=== PATIENT | male | born 1950 | race Caucasian/White ===

== ENCOUNTER 2016-11-10 06:53 | Inpatient (IN) ==
--- NOTE | 2016-11-09 09:46 | Anesthesia Evaluation PreOp ---
Date of Encounter: 11/10/16 Time of Encounter: 07:30 - Past History Planned Operation: CABG Cardiac History: [place], Angina, HTN, Hyperlipidemia, Other (PAD) Pulmonary History: Former smoker (quit December 2015) [employer] History: Denies Any Significant HX Other Medical History: GERD Anesthesia History: No Prior Anesthetic Complications, Past Anesthesia ( Bilateral iliofemoral stents, appendectomy and right TKA) Alcohol Use: occasionally Drug use: none Medications and Allergies Allopurinol [Zyloprim] 300 mg PO DAILY 08/19/15 [History] Lisinopril [Zestril] 40 mg PO DAILY 08/19/15 [History] Metoprolol [Lopressor] 25 mg PO BID 08/19/15 [History] Aspirin [Adult Low Dose Aspirin EC] 81 mg PO DAILY #0 01/17/16 [History] Gabapentin [Neurontin] 800 mg PO TID PRN 01/17/16 [History] Clopidogrel Bisulfate [Plavix] 75 mg PO DAILY #30 tablet 06/23/16 [Rx] Cholecalciferol (D-3) [Vitamin D] 1,000 unit PO DAILY 06/30/16 [History] Atorvastatin Calcium [Lipitor] 10 mg PO DAILY 10/10/16 [History] Isosorbide DInitrate [Isosorbide Dinitrate] 20 mg PO BID #0 10/10/16 [Rx] NIFEdipine [Nifedipine ER] 60 mg PO DAILY 10/10/16 [History] Nitroglycerin 0.4 mg SL Q5-10MIN PRN #30 tab.subl 10/10/16 [Rx] Allergies No Known Allergies Allergy (Verified 08/19/15 06:42) - Meds/Allergy Pre-op Review Medications Reviewed: Yes Allergies Reviewed: Yes Beta Blockers on Current Med List: Yes Anesthesia Results - Labs Laboratory Tests 11/03/16 11/03/16 16:39 16:39 Hgb 13.6 Hct 40.4 Plt Count 207 Sodium 137 Potassium 4.1 BUN 24 Creatinine 1.21 - Imaging EKG: report reviewed Chest x-ray: report reviewed (negative) Additional studies: Cath shows 3 vessel disease with EF 55%. Normal LV contractility, positive stress test for ischemia Anesthesia Exam Selected Entries 11/10/16 07:09 Temperature 97.8 F Pulse Rate 68 Respiratory Rate 18 Blood Pressure 135/81 O2 Sat by Pulse Oximetry 97 Height: 69in Weight: 220lbs NPO (# of Hours): 8 Pain Scale: 0 Pain Scale Used: Numeric (1 - 10) - HEENT Pupil (Motor): EOMI Mallampati: II Teeth: Normal Oral Opening: Greater than 3 - [employer] LOC: Oriented [employer] Motor: Normal RUE, Normal LUE, Normal RLE, Normal LLE, Normal Face [employer] Sensory: Normal: RUE, LUE, RLE, LLE, Face - Cardiac Rhythm: Regular Murmur: None - Pulmonary Breath Sounds: bilateral Clear Respiratory Effort: Symmetrical Anesthesia Assess/Plan ASA Score: 4 Modified [place] Scale for Level of Consciousness: Cooperative, oriented, and tranquil Anesthetic Plan: General Monitoring Plan: Standard Monitors, A-Line, PAC, CIRA Recovery Plan: ICU (Discussed risks of GA, lines, blood products and CIRA. Questions answered. Agrees to proceed.)
[2016-11-10] MEDS ORDERED: *HR* Midazolam HCl 5 MG/5 ML VIAL IVP ONE (06:59)
[2016-11-10] MEDS ORDERED: Tranexamic Acid 1,000 MG/10 ML VIAL ONE ×2 (06:59→09:04)
[2016-11-10] MEDS ORDERED: *HR* Etomidate 20 MG/10 ML AMPUL IVP ONE (06:59)
[2016-11-10] MEDS ORDERED: *HR* Phenylephrine 10 MG/ML VIAL ONE (06:59)
[2016-11-10] MEDS ORDERED: *HR* Norepinephrine 4 MG/4 ML VIAL IVC ONE (06:59)
[2016-11-10] MEDS ORDERED: Famotidine 20 MG/2 ML VIAL ONE (06:59)
[2016-11-10] MEDS ORDERED: Protamine Sulfate 250 MG/25 ML VIAL IVP ONE (06:59)
[2016-11-10] MEDS ORDERED: *HR* Rocuronium Bromide 50 MG/5 ML VIAL ONE (06:59)
[2016-11-10] MEDS ORDERED: *HR* FentaNYL (PF) 1,000 MCG/20 ML VIAL ONE (07:00)
[2016-11-10] MEDS ORDERED: Nitroglycerin 25 MG/250 ML INFUS..BTL IVC ONE (07:02)
[2016-11-10] MEDS ORDERED: NiCARdipine 2.5 MG/10 ML Syringe IVPB ONE (07:03)
[2016-11-10] MEDS ORDERED: ceFAZolin 1,000 MG in D5% in Water (Mini-Bag+) 100 ML IVPB ONE (07:15)
[2016-11-10] MEDS ORDERED: 0.9 % Sodium Chloride 1,000 ML IVC SCH (07:15)
[2016-11-10] MEDS ORDERED: Aspirin 325 MG TABLET PO ONE (07:19)
[2016-11-10] MEDS ORDERED: Vancomycin 1,000 MG in D5% in Water 250 ML IVPB ONE (07:21)
--- NOTE | 2016-11-10 07:25 | History & Physical Report ---
Date of Encounter: 11/10/16 Time of Encounter: 07:23 24 Hour HP Update - Instructions Instructions: If the History and Physical is less than 30 days old and was completed prior to A.M. admission and or procedure and has NOT been updated on calendar day of procedure please complete this update prior to performing procedure. - Update Patient reports changes in Medical Condition: No Changes in assessment/condition: No Changes in Medication: No Preop tests/diagnostics Reviewed: Yes Pre-Op MRSA Screen: Positive, Vancomycin for Prophylaxis Surgery Remains Indicated: Yes Consent for Planned Operative Procedure(s) Verified: Yes - Pre-Operative Checklist Preoperative Checklist Indicated: No Prophylactic Antibiotic Ordered: Yes Home Medications Include Beta Karel: Yes Beta Karel Taken Today (Day of Surgery): Yes Beta Karel Taken Yesterday (Day Prior to Surgery): Yes Is VTE Prophylaxis Indicated?: NO
[2016-11-10] MEDS ORDERED: Aspirin Enteric Coated 325 MG Tablet PO ONE (07:42)
[2016-11-10] MEDS ORDERED: Chlorhexidine Rinse 15 ML MOUTHWASH ONE (07:42)
[2016-11-10] MEDS ORDERED: Chlorhexidine Rinse 15 ML MOUTHWASH MM SCH (09:00)
--- NOTE | 2016-11-10 09:42 | Anesthesia Procedures ---
Date of Encounter: 11/10/16 Time of Encounter: 08:05 Procedures: Anesthesia - Arterial Line Consent obtained: written consent Time out performed: Yes Sedation: Versed (mg): 2 Sedation: Fentanyl (mcg): 100 Supplemental Oxygen via Nasal Cannula (L/min): 2 Size (Gauge): 20 Length (inches): 5 Technique Used: sterile prep, guide wire technique, direct puncture technique Post-Procedure: line taped into place, dry sterile dressing placed Patient tolerated procedure: well, no complications Complications: none Site: Radial L (attempt x 1, easy) - Central Line Placement Right IJ Consent obtained: written consent Time out performed: Yes Patient placed on monitor/pulse ox: Yes prep: mask, gown, gloves Central line prep: Chlorhexidine scrub Ultrasound used for placement: Yes Technique: Seldinger Lumen Inserted: Introducer Post procedure: sutured in place, good blood return, all ports aspirated, flushed, capped, sterile dressing applied Patient tolerated procedure: well, no complications Complications: none (attempt x 1, placed easily, swan wedge approximately 55cm, no arrthymias with placement)
[2016-11-10] MEDS ORDERED: Protamine Sulfate 50 MG/5 ML VIAL IVP ONE (10:56)
[2016-11-10] MEDS ORDERED: Albumin Human 5% 50.0 GM/1,000 ML VIAL ONE (11:06)
[2016-11-10] MEDS ORDERED: *HR* Dextrose 50 % in Water (Syg) 50 ML SYRINGE IVP PRN (11:10)
[2016-11-10] MEDS ORDERED: Acetaminophen 650 MG RECTAL SUPP RC PRN (11:10)
[2016-11-10] MEDS ORDERED: Potassium Chloride 40 MEQ/200 ML BAG IVPB PRN (11:10)
[2016-11-10] MEDS ORDERED: Ondansetron 4 MG/2 ML VIAL IVP PRN (11:10)
[2016-11-10] MEDS ORDERED: Insulin Regular, Human 100 UNIT/ML IV PRN (11:10)
[2016-11-10] MEDS ORDERED: Calcium Chloride 1,000 MG in 0.9 % Sodium Chloride 100 ML IVPB PRN (11:10)
[2016-11-10] MEDS ORDERED: Acetaminophen 325 MG TABLET PO PRN (11:10)
--- NOTE | 2016-11-10 11:10 | Operative Note ---
Date of procedure: 11/10/16 Pre-op diagnosis: CAD Post-op diagnosis: same Procedure: 1. CABG3 (MARINO to LAD, SVG to ramus intermediate branch, SVG to PDA). 2. Endoscopic vein harvesting, greater saphenous vein from right lower extremity area did Implants: None. Complications: None. Anesthesia: RADHIKA Surgeon: Marito Norton Cherry Sorter: [place] Sheets Specimen: None. Condition: stable Disposition: ICU Procedure in Detail: INDICATIONS FOR OPERATION: The patient is a 66-year-old hypertensive man with hypercholesterolemia and known peripheral arterial disease. The patient recently underwent a right SFA stenting procedure followed by a left SFA stenting procedure. During the most recent procedure, the patient complained of GERD which is been present for 2 months. The patient's vascular surgeon, Dr. Gonsalo Clayton, recommended the patient undergo cardiac workup. The patient underwent a nuclear stress test which revealed an LVEF 64% with perfusion defects in the inferior segments. Subsequent cardiac catheterization revealed severe 3 vessel CAD. In particular, the patient had an 80% distal left main lesion, a 40% proximal LAD lesion, a 40% mid LAD lesion, 80% ostial LCx lesion (small vessel) and a completely occluded proximal RCA which fills distally via [id number] collaterals. The patient was recommended for CABG when he was able to advance to limited weightbearing from his right femur fracture. FINDINGS AT OPERATION: The aorta was of normal caliber and without calcification. The coronary arteries measure approximately 1.5-2 mm in diameter had mild distal disease. The greater saphenous vein was harvested endoscopically from the right lower extremity from the knee to the groin and was of good quality. The total bypass time was 70 minutes, cross-clamp time 36 minutes, intentional hypothermia 34C. DESCRIPTION OF OPERATION: After obtaining informed consent from the patient, he was taken to the operative room her satisfaction ventricular anesthetic was induced. Appropriate monitoring lines placed, the patient's chest, abdomen, and lower extremity prepped and draped in sterile fashion. The greater saphenous vein was harvested endoscopically from the right lower extremity from the knee to the groin. The vein was removed, distended, and found to be of good quality. The subcutaneous tissue and skin edges were reapproximated using running Vicryl sutures. Simultaneously, standard median sternotomy incision was made and the sternum divided. The MARINO was taken down from its bed and side branches divided between hemoclips. The sternum was then and the pericardium was opened and reflected laterally. The patient was cleared for cannulation by placing pursestring sutures in the distal ascending aorta, mid-ascending aorta, and right atrial appendage. The patient was heparinized and when the ACT was created and 200 seconds, the distal ascending aorta was cannulated fall by placement of a dual stage venous cannula through the right atrial appendage and into the IVC. A stab-in antegrade metabolic cannula was placed in the mid- ascending aorta. The patient was placed on bypass and the temperature left to drift to 34C. The distal targets were identified and the aorta was then crossclamped. The patient received 700 mL of cold antegrade crystalloid cardioplegia the aortic root, and the patient's heart obtained rapid diastolic arrest. The OM 1 branch of the LCx was found to be too small for bypass and attention was turned to the ramus intermediate branch. This was a large vessel measuring approximately 2 mm in diameter. The artery was opened and the vein was anastomosed in an end-to-side fashion using running 7-0 Prolene suture. The anastomosis found to be hemostatic. This process was repeated for the PDA branch. After completion of anastomosis the patient proceeded final dose of cold antegrade crystalloid cardioplegia to the aortic root. The LAD was then opened the bladder blade and the MARINO was anastomosed in end-to-side fashion to the LAD using running 7-0 Prolene suture. The anastomosis was found to be hemostatic. The mammary pedicle was then tacked to the epicardium using interrupted 5-0 silk suture. The aortic cross-clamp was removed and the heart distended. The veins were then measured and cut to appropriate lengths. The partial occluding clamp was then placed across the mid-ascending aorta and antegrade cardioplegia cannula was removed. An additional aortotomy site was then made with an 11 blade and both sides were enlarged with 4 mm punch. The veins were then anastomosed in end-to- side fashion to the aorta using a running 5-0 Prolene suture. The vein grafts were occluded with bulldog clamps and de-aired the 25-gauge needle prior to removing the partial occluding clamp. The proximal and distal anastomoses were found to be hemostatic. The proximal anastomoses were marked with radiopaque loops. Two right ventricular temporary cardiac patient was replaced, and 3 chest tubes were placed, to the mediastinum and one into the left pleural space. During rewarming the patient's heart regained normal sinus rhythm spontaneously. When the patient's systemic temperature reached 36C, he was ventilated and received volume. He required no inotropic support. Protamine was administered and the aortic and venous cannulas were removed. The pursestring sutures were secured and both cannulation sites were reinforced with a Prolene suture. The pericardium was loosely approximated in the midline using interrupted 0 silk suture. The sternum was reapproximated using sternal wires, and the pectoralis major fascia, rectus abdominis fascia, subcutaneous tissue, and skin edges were reapproximated using running Vicryl sutures. A negative pressure sterile dressing was then placed on the sternotomy incision. The patient was transferred to the ICU in satisfactory postoperative condition. There were no intraoperative complications, and the instrument, needle, and sponge count were correct at the end of operation. - Open Heart Detail FREDERIC (Internal Mammary Artery) Usage: Yes Cardiopulmonary Bypass Time (mins): 70 Aortic Cross Clamp Time (mins): 36 Intentional Hypothermia Temperature (C.): 34
[2016-11-10] MEDS ORDERED: 0.9 % Sodium Chloride w KCl 20 MEQ/1,000 ML MLS IVC SCH (11:15)
[2016-11-10 12:11] LABS: Eosinophils # 0.1 K/mcL (0.0-0.6); Eosinophils % 0.5 %; Hematocrit 32.3 % (37.5-50.1); Immature Granulocytes % 0.5 % (0-4); Lymphocytes # 2.6 K/mcL (0.6-4.6); Lymphocytes % 22.1 %; Mean Corpuscular HGB Conc 34.4 g/dL (31.6-35.5); Mean Corpuscular Hemoglobin 31.7 pg (28.0-33.3); Mean Corpuscular Volume 92.3 fL (83.0-100.0); Mean Platelet Volume 9.1 fL (9.4-12.4); Monocytes # 0.1 K/mcL (0.0-1.3); Neutrophils # 8.8 K/mcL (1.6-8.9); Platelet Count 112 K/mcL (140-400); Red Cell Distribution Width 13.7 % (11.5-14.5); Segmented Neutrophils % 75.9 %
[2016-11-10 12:12] LABS: Hemoglobin 11.1 g/dL (12.9-16.9)
[2016-11-10 12:14] LABS: ABG Base Excess -0.7 mEq/L (-2.0 to 3.0); ABG HCO3 24.2 mEQ/L (21-27); ABG Oxygen Saturation 99 % (95-98); ABG PCO2 40 mmHg (35-45); ABG PH 7.39 pH Units (7.32-7.45); ABG PO2 134 mmHg (85-104); ABG TCO2 25.4 mEq/L (20-26)
[2016-11-10 12:15] LABS: Blood Gas FiO2 50 %
[2016-11-10 12:16] LABS: INR 1.5
[2016-11-10 12:19] LABS: Activated Partial Thrombo Time 32.3 Seconds (26.0-36.0)
[2016-11-10] MEDS: Metoclopramide 10 MG/2 ML VIAL IVP SCH ×3 (12:19→23:58)
[2016-11-10] MEDS: Pantoprazole 40 MG VIAL IVP SCH (12:19)
[2016-11-10 12:23] LABS: BUN/Creatinine Ratio 16 (6-26); Blood Urea Nitrogen 15 mg/dL (8-26); Calcium 8.8 mg/dL (8.6-10.8); Carbon Dioxide 23 mEq/L (19-29); Chloride 108 mEq/L (98-109); Glucose 106 mg/dL (70-99); Magnesium 2.1 mg/dL (1.6-2.6); Osmolality,Calculated 285 (280-300); Potassium 3.8 mEq/L (3.5-4.5); Sodium 137 mEq/L (136-145); eGFR For African Americans > 60 (> 60); eGFR For Non-African Americans > 60 (> 60)
[2016-11-10 12:28] LABS: Prothrombin Time 16.2 Seconds (9.4-12.1)
[2016-11-10] MEDS: Nitroglycerin 25 MG/250 ML INFUS..BTL IVC SCH (12:38)
[2016-11-10] MEDS: niCARdipine 40 MG/200 ML MLS IVC SCH (12:45)
[2016-11-10] MEDS: Magnesium Sulfate 2 GM in D5% in Water 100 ML IVPB PRN (13:16)
[2016-11-10] MEDS ORDERED: *HR* HYDROmorphone 20 MG/20 ML PCA IVC PRN (13:23)
[2016-11-10 14:07] LABS: ABG Base Excess -1.2 mEq/L (-2.0 to 3.0); ABG HCO3 26.6 mEQ/L (21-27); ABG Hematocrit 39 % (35-51); ABG Oxygen Saturation 98 % (95-98); ABG PCO2 58 mmHg (35-45); ABG PH 7.27 pH Units (7.32-7.45); ABG PO2 126 mmHg (85-104); ABG TCO2 28.4 mEq/L (20-26)
[2016-11-10 14:08] LABS: ABG Glucose 128 mg/dL (60-95); ABG Ionized Calcium 1.16 mmol/L (1.15-1.35)
[2016-11-10 14:09] LABS: ABG PCO2 36 mmHg (35-45); ABG PH 7.35 pH Units (7.32-7.45)
[2016-11-10 14:10] LABS: ABG Base Excess -5.2 mEq/L (-2.0 to 3.0); ABG Glucose 134 mg/dL (60-95); ABG HCO3 19.9 mEQ/L (21-27); ABG Hematocrit 28 % (35-51); ABG Ionized Calcium 0.76 mmol/L (1.15-1.35); ABG Oxygen Saturation 94 % (95-98); ABG PO2 74 mmHg (85-104)
[2016-11-10 14:13] LABS: VBG HCO3 22.5 mEq/L (21-27); VBG PH 7.37 pH Units (7.32-7.42)
[2016-11-10 14:14] LABS: VBG Ionized Calcium 0.91 mmol/L (1.15-1.35)
[2016-11-10 14:15] LABS: ABG HCO3 23.6 mEQ/L (21-27); ABG PCO2 34 mmHg (35-45); ABG PH 7.45 pH Units (7.32-7.45); ABG PO2 370 mmHg (85-104)
[2016-11-10 14:16] LABS: ABG Base Excess -0.2 mEq/L (-2.0 to 3.0); ABG Glucose 191 mg/dL (60-95); ABG Hematocrit 26 % (35-51); ABG Ionized Calcium 1.05 mmol/L (1.15-1.35); ABG Oxygen Saturation 100 % (95-98); ABG TCO2 24.6 mEq/L (20-26)
[2016-11-10 14:17] LABS: ABG PH 7.48 pH Units (7.32-7.45)
[2016-11-10 14:18] LABS: ABG Glucose 162 mg/dL (60-95); ABG HCO3 23.1 mEQ/L (21-27); ABG Hematocrit 29 % (35-51); ABG Ionized Calcium 1.06 mmol/L (1.15-1.35); ABG Oxygen Saturation 100 % (95-98); ABG PCO2 31 mmHg (35-45); ABG PO2 408 mmHg (85-104); ABG TCO2 24.1 mEq/L (20-26)
[2016-11-10 14:20] LABS: ABG HCO3 18.6 mEQ/L (21-27); ABG PCO2 33 mmHg (35-45); ABG PH 7.36 pH Units (7.32-7.45); ABG PO2 93 mmHg (85-104)
[2016-11-10 14:21] LABS: ABG Base Excess -6.3 mEq/L (-2.0 to 3.0); ABG Glucose 110 mg/dL (60-95); ABG Hematocrit 21 % (35-51); ABG Ionized Calcium 0.96 mmol/L (1.15-1.35); ABG Oxygen Saturation 97 % (95-98); ABG TCO2 19.6 mEq/L (20-26)
[2016-11-10] MEDS ORDERED: Mannitol 25% vial 12.5 GM/50 ML VIAL IVP ONE (14:41)
[2016-11-10] MEDS ORDERED: *HR* Magnesium Sulfate 2 GM/50 ML PIGGYBACK IVPB ONE (14:41)
[2016-11-10] MEDS ORDERED: Albumin Human 25% 25 GM/100 ML IV.SOLN IV ONE (14:41)
[2016-11-10] MEDS ORDERED: *HR* Heparin 10,000 UNIT/10 ML VIAL IV ONE (14:41)
[2016-11-10] MEDS ORDERED: Tranexamic Acid 1,000 MG/10 ML VIAL IV ONE (14:41)
[2016-11-10] MEDS ORDERED: *HR* Phenylephrine 10 MG/ML VIAL IVC ONE (14:41)
[2016-11-10] MEDS ORDERED: Lidocaine 2% Syringe 100 MG/5 ML IV ONE (14:41)
[2016-11-10 15:54] LABS: ABG Base Excess -2.8 mEq/L (-2.0 to 3.0); ABG HCO3 23.2 mEQ/L (21-27); ABG Oxygen Saturation 87 % (95-98); ABG PCO2 44 mmHg (35-45); ABG PH 7.33 pH Units (7.32-7.45); ABG PO2 57 mmHg (85-104); ABG TCO2 24.6 mEq/L (20-26); Blood Gas FiO2 40 %
[2016-11-10 16:04] LABS: Magnesium 2.3 mg/dL (1.6-2.6); Potassium 4.1 mEq/L (3.5-4.5)
[2016-11-10] MEDS: *HR* OxyCODONE/APAP 5/325 TABLET PO PRN (16:30)
[2016-11-10] MEDS: ceFAZolin 2,000 MG in D5% in Water 100 ML IVPB SCH ×2 (16:30→23:57)
[2016-11-10] MEDS: Norepinephrine 4 MG in D5% in Water 250 ML IVC SCH (16:48)
--- NOTE | 2016-11-10 16:58 | Electrocardiograph Report ---
[place] [id number] Test Date: 2016-11-10 Pat Name: Audie Traore Department: 109 Room: [facility] Gender: M Collection Teller: : 1950 Requested By: Marito Norton Order Number: [id number] Reading MD: Kaleigh Michael Measurements Intervals [place] Rate: 83 P: 43 NC: 191 QRS: -25 QRSD: 119 T: 30 QT: 386 QTc: 425 Interpretive Statements SINUS RHYTHM INFERIOR MYOCARDIAL INFARCTION, PROBABLY OLD Electronically Signed On 11-10-2016 16:56:30 EST by Kaleigh Michael
[2016-11-10] MEDS: Insulin Human Regular 100 UNIT in 0.9 % Sodium Chloride 100 ML IV SCH (18:17)
[2016-11-10 20:21] LABS: ABG Base Excess -1.3 mEq/L (-2.0 to 3.0); ABG HCO3 23.7 mEQ/L (21-27); ABG Oxygen Saturation 96 % (95-98); ABG PCO2 40 mmHg (35-45); ABG PH 7.38 pH Units (7.32-7.45); ABG PO2 83 mmHg (85-104); ABG TCO2 24.9 mEq/L (20-26)
[2016-11-10 20:22] LABS: Blood Gas FiO2 50 %
[2016-11-10] MEDS: Chlorhexidine Rinse 15 ML MOUTHWASH MM SCH (21:29)
[2016-11-11 00:43] LABS: ABG Base Excess -2.1 mEq/L (-2.0 to 3.0); ABG HCO3 22.3 mEQ/L (21-27); ABG Oxygen Saturation 93 % (95-98); ABG PCO2 36 mmHg (35-45); ABG PO2 66 mmHg (85-104); ABG TCO2 23.4 mEq/L (20-26)
[2016-11-11 00:48] LABS: Blood Gas FiO2 50 %
[2016-11-11] MEDS ORDERED: 0.9 % Sodium Chloride 1,000 ML IVC SCH (01:15)
[2016-11-11 02:07] LABS: ABG Base Excess -3.3 mEq/L (-2.0 to 3.0); ABG HCO3 21.3 mEQ/L (21-27); ABG Oxygen Saturation 91 % (95-98); ABG PCO2 36 mmHg (35-45); ABG PH 7.38 pH Units (7.32-7.45); ABG PO2 62 mmHg (85-104); ABG TCO2 22.4 mEq/L (20-26); Blood Gas FiO2 50 %
[2016-11-11] MEDS: Nitroglycerin 25 MG/250 ML INFUS..BTL IVC SCH ×3 (02:48→21:26)
[2016-11-11 03:24] LABS: Basophils % 0.2 %; Eosinophils % 0.1 %; Hematocrit 36.5 % (37.5-50.1); Hemoglobin 12.4 g/dL (12.9-16.9); Immature Granulocytes % 0.6 % (0-4); Immature Platelets 2.1 % (1.1-6.1); Lymphocytes # 1.2 K/mcL (0.6-4.6); Lymphocytes % 6.9 %; Mean Corpuscular Hemoglobin 31.7 pg (28.0-33.3); Mean Corpuscular Volume 93.4 fL (83.0-100.0); Mean Platelet Volume 9.5 fL (9.4-12.4); Neutrophils # 15.1 K/mcL (1.6-8.9); Platelet Count 180 K/mcL (140-400); Red Blood Count 3.91 M/mcL (4.19-5.50); Red Cell Distribution Width 14.2 % (11.5-14.5); Segmented Neutrophils % 85.2 %
[2016-11-11 03:25] LABS: Monocytes # 1.2 K/mcL (0.0-1.3)
[2016-11-11 03:29] LABS: INR 1.3; Prothrombin Time 13.9 Seconds (9.4-12.1)
[2016-11-11 03:32] LABS: Activated Partial Thrombo Time 27.6 Seconds (26.0-36.0)
[2016-11-11 03:35] LABS: BUN/Creatinine Ratio 14 (6-26); Blood Urea Nitrogen 17 mg/dL (8-26); Calcium 7.5 mg/dL (8.6-10.8); Carbon Dioxide 17 mEq/L (19-29); Chloride 113 mEq/L (98-109); Glucose 137 mg/dL (70-99); Magnesium 1.8 mg/dL (1.6-2.6); Osmolality,Calculated 298 (280-300); Potassium 4.7 mEq/L (3.5-4.5); Sodium 142 mEq/L (136-145); eGFR For African Americans > 60 (> 60); eGFR For Non-African Americans 59 (> 60)
[2016-11-11] MEDS: Metoclopramide 10 MG/2 ML VIAL IVP SCH ×4 (06:41→23:17)
[2016-11-11] MEDS: Magnesium Sulfate 2 GM in D5% in Water 100 ML IVPB PRN (07:06)
--- NOTE | 2016-11-11 07:51 | Cardiothoracic Progress Note ---
Date of Encounter: 11/11/16 Time of Encounter: 07:49 - Assessment and plan (1) CAD (coronary artery disease) Current Visit: Yes Status: Acute The patient is recovering well from his CABG 3. He has remained hemodynamic stable. He is extubated; however, is on BiPAP due to decreased oxygen saturations. The patient probably has a history of undocumented obstructive sleep apnea. The arterial line, Guy catheter, and [place] catheter be removed. He will be monitored in the ICU today for his oxygen saturation. Diuresis will be started. The assessment and plan as outlined above was discussed with the patient and/or family members who expressed understanding and agreement. All questions were answered. Qualifiers: Coronary Disease-Associated Artery/Lesion type: [place] artery [place] vs. transplanted heart: [place] heart Associated angina: with stable angina Qualified Code(s): I25.118 - Atherosclerotic heart disease of [place] coronary artery with other forms of angina pectoris - Subjective Procedure(s) Performed: POD#1 S/P CABG3 Interval history: The patient remained hemodynamically stable overnight. He is currently extubated ; however, on BiPAP due to decreased oxygen saturations. He has no complaints. Vital Signs, Last 4 Hours Temp Pulse Resp BP Pulse Ox 11/11/16 07:37 98.0 F 11/11/16 07:00 98.6 F 113 18 113/62 85 L 11/11/16 06:00 98.6 F 112 18 133/72 85 L 11/11/16 05:00 98.6 F 115 18 121/64 84 L 11/11/16 04:22 16 137/70 88 L 11/11/16 04:00 98.7 F 109 16 136/73 87 L Clinical Data, last 8 Hours Output, Chest Tube Drainage 20 Amount [Mediastinal #2] Output, Chest Tube Drainage 0 Amount [Mediastinal #2] Output, Chest Tube Drainage 0 Amount [Mediastinal #2] Output, Chest Tube Drainage 14 Amount [Mediastinal #2] Output, Chest Tube Drainage 45 Amount [Mediastinal #2] Output, Chest Tube Drainage 26 Amount [Mediastinal #2] Output, Chest Tube Drainage 15 Amount [Mediastinal #2] Output, Chest Tube Drainage 10 Amount [Mediastinal #2] Output, Chest Tube Drainage 10 Amount [Mediastinal #1] Output, Chest Tube Drainage 0 Amount [Mediastinal #1] Output, Chest Tube Drainage 20 Amount [Mediastinal #1] Output, Chest Tube Drainage 20 Amount [Mediastinal #1] Output, Chest Tube Drainage 25 Amount [Mediastinal #1] Output, Chest Tube Drainage 30 Amount [Mediastinal #1] Output, Chest Tube Drainage 5 Amount [Mediastinal #1] Output, Chest Tube Drainage 10 Amount [Mediastinal #1] Weight 11/09/16 11/10/16 11/11/16 23:59 23:59 23:59 Weight 100.698 kg - Physical Examination General: Conversant, No Apparent Distress Neck: No JVD, Normal carotid pulses Cardiac: Reg Rate and Rhythm, Normal S1 and S2, No Murmur Incision: No signs of infection, Dry/intact dressing Sternum: Stable Chest tubes: Minimal drainage, Other (No air leak.) Pacing Wires: In place Lungs: Normal Breath Sounds, No Wheeze, Rales, Rhonchi Neuro: Alert and responsive, No focal deficits noted Vascular: Normal capillary refill Musculoskeletal: No Chest Wall Tenderness Extremities: No Clubbing, No Cyanosis, No Edema - Labs 11/11/16 03:15 11/11/16 03:15 Lab Results, Last 24 hours 11/10/16 11/10/16 11/10/16 12:00 12:00 12:00 WBC 11.6 H Hgb 11.1 L D Hct 32.3 L Plt Count 112 L INR 1.5 APTT 32.3 Sodium 137 Potassium 3.8 Chloride 108 Carbon Dioxide 23 BUN 15 Creatinine 0.94 Glucose 106 H Calcium 8.8 Magnesium 2.1 11/10/16 11/11/16 11/11/16 15:45 03:15 03:15 WBC 17.7 H D Hgb 12.4 L Hct 36.5 L Plt Count 180 D INR 1.3 APTT 27.6 Sodium Potassium 4.1 Chloride Carbon Dioxide BUN Creatinine Glucose Calcium Magnesium 2.3 11/11/16 03:15 WBC Hgb Hct Plt Count INR APTT Sodium 142 Potassium 4.7 H Chloride 113 H Carbon Dioxide 17 L BUN 17 Creatinine 1.22 Glucose 137 H Calcium 7.5 L Magnesium 1.8 - Imaging Chest Xray: image reviewed (Bibasilar atelectasis, left side greater than right side.) - VTE Documentation of Mechanical Device: Graduated compression elastic hosiery Consult Discharge Plan - Plan [facility]errals: [facility] [Primary Care Provider] -
[2016-11-11] MEDS ORDERED: Albuterol 2.5 MG/3 ML NEBULIZER ONE (08:16)
[2016-11-11] MEDS ORDERED: Vancomycin 1,000 MG in D5% in Water 250 ML IVPB ONE (09:00)
[2016-11-11] MEDS: Aspirin Enteric Coated 81 MG Tablet PO SCH (09:31)
[2016-11-11] MEDS: Chlorhexidine Rinse 15 ML MOUTHWASH MM SCH ×2 (09:31→21:25)
[2016-11-11] MEDS: Furosemide 20 MG/2 ML VIAL IVP SCH ×2 (09:32→21:26)
[2016-11-11] MEDS: Pantoprazole 40 MG VIAL IVP SCH (09:32)
[2016-11-11] MEDS: *HR* Heparin 5,000 UNIT/ML VIAL SQ SCH ×2 (09:48→21:26)
[2016-11-11] MEDS: Albuterol 2.5 MG/3 ML NEBULIZER IH PRN ×2 (11:23→15:43)
[2016-11-11] MEDS: Norepinephrine 4 MG in D5% in Water 250 ML IVC SCH (11:42)
[2016-11-11] MEDS: niCARdipine 40 MG/200 ML MLS IVC SCH (15:42)
[2016-11-11] MEDS: Insulin Human Regular 100 UNIT in 0.9 % Sodium Chloride 100 ML IV SCH (15:44)
[2016-11-12 03:34] LABS: Basophils % 0.1 %; Hematocrit 34.7 % (37.5-50.1); Hemoglobin 11.5 g/dL (12.9-16.9); Immature Granulocytes % 0.5 % (0-4); Immature Platelets 3.1 % (1.1-6.1); Lymphocytes # 1.5 K/mcL (0.6-4.6); Mean Corpuscular HGB Conc 33.1 g/dL (31.6-35.5); Mean Corpuscular Hemoglobin 31.2 pg (28.0-33.3); Mean Platelet Volume 9.8 fL (9.4-12.4); Monocytes # 1.5 K/mcL (0.0-1.3); Monocytes % 7.4 %; Neutrophils # 17.5 K/mcL (1.6-8.9); Platelet Count 162 K/mcL (140-400); Red Blood Count 3.69 M/mcL (4.19-5.50); Red Cell Distribution Width 14.1 % (11.5-14.5)
[2016-11-12 03:47] LABS: BUN/Creatinine Ratio 20 (6-26); Blood Urea Nitrogen 26 mg/dL (8-26); Carbon Dioxide 22 mEq/L (19-29); Chloride 102 mEq/L (98-109); Glucose 157 mg/dL (70-99); Osmolality,Calculated 282 (280-300); Potassium 5.2 mEq/L (3.5-4.5); eGFR For African Americans > 60 (> 60); eGFR For Non-African Americans 55 (> 60)
[2016-11-12 03:55] LABS: Sodium 132 mEq/L (136-145)
[2016-11-12] MEDS: Metoclopramide 10 MG/2 ML VIAL IVP SCH ×4 (05:46→23:38)
[2016-11-12] MEDS: Nitroglycerin 25 MG/250 ML INFUS..BTL IVC SCH ×4 (06:16→20:36)
[2016-11-12] MEDS: Pantoprazole 40 MG VIAL IVP SCH (07:56)
[2016-11-12] MEDS: Aspirin Enteric Coated 81 MG Tablet PO SCH (07:56)
[2016-11-12] MEDS: Chlorhexidine Rinse 15 ML MOUTHWASH MM SCH ×2 (07:56→20:35)
[2016-11-12] MEDS: Furosemide 20 MG/2 ML VIAL IVP SCH ×2 (07:56→20:35)
--- NOTE | 2016-11-12 07:56 | Cardiothoracic Progress Note ---
Date of Encounter: 11/12/16 Time of Encounter: 07:53 - Assessment and plan (1) CAD (coronary artery disease) Current Visit: Yes Status: Acute The patient is recovering well from his CABG 3. He has remained hemodynamically stable. His oxygen saturations are in the mid 90s on high flow oxygen per nasal cannula. The chest tubes removed. The patient will remain in the ICU to monitor his respiratory status. The assessment and plan as outlined above was discussed with the patient and/or family members who expressed understanding and agreement. All questions were answered. Qualifiers: Coronary Disease-Associated Artery/Lesion type: [place] artery [place] vs. transplanted heart: [place] heart Associated angina: with stable angina Qualified Code(s): I25.118 - Atherosclerotic heart disease of [place] coronary artery with other forms of angina pectoris - Subjective Procedure(s) Performed: POD#2 S/P CABG3 Interval history: The patient remained hemodynamically stable overnight. He was able to sit in a chair for several hours without difficulty. His oxygen saturation remains in the 90s on high flow. He has no complaints. Vital Signs, Last 4 Hours Temp Pulse Resp BP Pulse Ox 11/12/16 07:36 100 16 124/73 96 11/12/16 07:30 97.9 F 11/12/16 05:00 109 11/12/16 04:00 98.6 F 109 16 142/97 87 L [place] Flow Rate Oxygen Flow Rate (LPM) 15 Clinical Data, last 8 Hours Output, Chest Tube Drainage 0 Amount [Mediastinal #2] Output, Chest Tube Drainage 40 Amount [Mediastinal #2] Output, Chest Tube Drainage 0 Amount [Mediastinal #1] Output, Chest Tube Drainage 0 Amount [Mediastinal #1] Output, Urine Amount 80 Weight 11/10/16 11/11/16 11/12/16 23:59 23:59 23:59 Weight 100.698 kg - Physical Examination General: Conversant, No Apparent Distress Neck: No JVD, Normal carotid pulses Cardiac: Reg Rate and Rhythm, Normal S1 and S2, No Murmur Incision: No signs of infection, Dry/intact dressing Sternum: Stable Chest tubes: Minimal drainage, Air leak Pacing Wires: In place Lungs: Normal Breath Sounds, No Wheeze, Rales, Rhonchi Neuro: Alert and responsive, No focal deficits noted Vascular: Normal capillary refill Musculoskeletal: No Chest Wall Tenderness Extremities: No Clubbing, No Cyanosis, No Edema - Labs 11/12/16 03:10 11/12/16 03:10 Lab Results, Last 24 hours 11/12/16 11/12/16 03:10 03:10 WBC 20.6 H Hgb 11.5 L Hct 34.7 L Plt Count 162 Sodium 132 L D Potassium 5.2 H Chloride 102 Carbon Dioxide 22 BUN 26 Creatinine 1.30 H Glucose 157 H Calcium 9.0 D - Imaging Chest Xray: image reviewed (No pneumothorax. Small bilateral pleural effusions.) - VTE Documentation of Mechanical Device: Graduated compression elastic hosiery Consult Discharge Plan - Plan Referrals: [facility] [Primary Care Provider] -
[2016-11-12] MEDS ORDERED: *HR* Dextrose 50 % in Water (Syg) 50 ML SYRINGE IVP PRN (07:57)
[2016-11-12] MEDS ORDERED: D5% in Water 1,000 ML IV PRN (07:57)
[2016-11-12] MEDS ORDERED: Dextrose Gel 15 GM PO PRN ×2 (07:57)
[2016-11-12] MEDS: *HR* Heparin 5,000 UNIT/ML VIAL SQ SCH ×2 (08:01→17:18)
[2016-11-12] MEDS: niCARdipine 40 MG/200 ML MLS IVC SCH (08:02)
[2016-11-12] MEDS: Albuterol 2.5 MG/3 ML NEBULIZER IH PRN ×2 (08:26→15:43)
[2016-11-12] MEDS: Insulin Human Regular 100 UNIT in 0.9 % Sodium Chloride 100 ML IV SCH (12:04)
[2016-11-12] MEDS: Norepinephrine 4 MG in D5% in Water 250 ML IVC SCH (12:05)
[2016-11-12] MEDS: Insulin LISPRO 300 UNITS/3 ML VIAL SQ SCH ×3 (12:07→20:35)
[2016-11-13] MEDS: Albuterol 2.5 MG/3 ML NEBULIZER IH PRN ×5 (00:15→20:13)
[2016-11-13 03:58] LABS: BUN/Creatinine Ratio 32 (6-26); Blood Urea Nitrogen 24 mg/dL (8-26); Carbon Dioxide 19 mEq/L (19-29); Chloride 108 mEq/L (98-109); Glucose 103 mg/dL (70-99); Osmolality,Calculated 284 (280-300); Sodium 135 mEq/L (136-145); eGFR For African Americans > 60 (> 60); eGFR For Non-African Americans > 60 (> 60)
[2016-11-13 04:04] LABS: Calcium 7.3 mg/dL (8.6-10.8); Potassium 3.8 mEq/L (3.5-4.5)
[2016-11-13] MEDS: Nitroglycerin 25 MG/250 ML INFUS..BTL IVC SCH ×3 (04:50→20:55)
[2016-11-13] MEDS: Metoclopramide 10 MG/2 ML VIAL IVP SCH ×2 (05:16→14:16)
[2016-11-13] MEDS ORDERED: Amiodarone Premix 150 MG/100 ML BAG IVPB ONE (05:28)
[2016-11-13] MEDS ORDERED: Amiodarone Premix 360 MG/200 ML BAG IVC ONE (05:28)
[2016-11-13] MEDS ORDERED: Amiodarone Premix 360 MG/200 ML BAG IVC SCH (05:30)
[2016-11-13] MEDS: *HR* Heparin 5,000 UNIT/ML VIAL SQ SCH ×2 (06:57→20:04)
--- NOTE | 2016-11-13 07:20 | Cardiothoracic Progress Note ---
Date of Encounter: 11/13/16 Time of Encounter: 07:18 - Assessment and plan (1) CAD (coronary artery disease) Current Visit: Yes Status: Acute The patient is recovering well from his CABG 3. He has remained hemodynamically stable and the colon however, he developed atrial fibrillation with RVR. The Cardizem drip was started and his rate is now controlled. The medical treatment for his atrial fibrillation will continue. His oxygen saturations are in the mid 90s on high flow oxygen per nasal cannula. The patient will remain in the ICU to monitor his heart rate/rhythm and respiratory status. The assessment and plan as outlined above was discussed with the patient and/or family members who expressed understanding and agreement. All questions were answered. Qualifiers: Coronary Disease-Associated Artery/Lesion type: [place] artery [place] vs. transplanted heart: [place] heart Associated angina: with stable angina Qualified Code(s): I25.118 - Atherosclerotic heart disease of [place] coronary artery with other forms of angina pectoris - Subjective Procedure(s) Performed: POD#3 S/P CABG3 Interval history: The patient remained hemodynamically stable overnight. He developed atrial fibrillation early this morning and is currently on a Cardizem drip with a controlled rate. His oxygen saturation remains in the 90s on high flow. He has no complaints. Vital Signs, Last 4 Hours Temp Pulse Resp BP Pulse Ox 11/13/16 06:46 116 24 124/95 91 L 11/13/16 06:15 121 12 127/86 94 L 11/13/16 05:41 144 20 135/90 89 L 11/13/16 04:48 109 16 153/100 94 L 11/13/16 04:02 14 96 11/13/16 04:00 102 16 167/93 97 11/13/16 03:33 107 11/13/16 03:23 98.1 F 107 16 160/98 94 L [place] Flow Rate Oxygen Flow Rate (LPM) 15 Clinical Data, last 8 Hours Output, Urine Amount 200 Output, Urine Amount 200 Output, Urine Amount 325 - Physical Examination General: Conversant, No Apparent Distress Neck: No JVD, Normal carotid pulses Cardiac: Normal S1 and S2, No Murmur, Other (Irregular rate and rhythm (atrial fibrillation)) Incision: No signs of infection, Dry/intact dressing Sternum: Stable Pacing Wires: In place Lungs: Normal Breath Sounds, No Wheeze, Rales, Rhonchi Neuro: Alert and responsive, No focal deficits noted Vascular: Normal capillary refill Musculoskeletal: No Chest Wall Tenderness Extremities: No Clubbing, No Cyanosis, No Edema - Labs 11/12/16 03:10 11/13/16 03:36 Lab Results, Last 24 hours 11/13/16 03:36 Sodium 135 L Potassium 3.8 D Chloride 108 Carbon Dioxide 19 BUN 24 Creatinine 0.76 Glucose 103 H Calcium 7.3 L D - VTE Documentation of Mechanical Device: Graduated compression elastic hosiery Consult Discharge Plan - Plan Referrals: [facility] [Primary Care Provider] -
[2016-11-13] MEDS: Chlorhexidine Rinse 15 ML MOUTHWASH MM SCH ×2 (08:31→20:03)
[2016-11-13] MEDS: Pantoprazole 40 MG VIAL IVP SCH (08:31)
[2016-11-13] MEDS: Furosemide 20 MG/2 ML VIAL IVP SCH ×2 (08:32→20:04)
[2016-11-13] MEDS: Aspirin Enteric Coated 81 MG Tablet PO SCH (08:38)
[2016-11-13] MEDS: Insulin LISPRO 300 UNITS/3 ML VIAL SQ SCH ×4 (08:38→20:05)
[2016-11-13] MEDS: *HR* OxyCODONE/APAP 5/325 TABLET PO PRN (09:03)
[2016-11-13] MEDS: niCARdipine 40 MG/200 ML MLS IVC SCH (13:55)
[2016-11-13] MEDS: Insulin Human Regular 100 UNIT in 0.9 % Sodium Chloride 100 ML IV SCH (13:56)
[2016-11-13] MEDS: Norepinephrine 4 MG in D5% in Water 250 ML IVC SCH (13:56)
[2016-11-13] MEDS ORDERED: 0.9 % Sodium Chloride 250 ML ONE (18:00)
--- NOTE | 2016-11-13 19:19 | Anesthesia Evaluation Post Op ---
Date of Encounter: 11/12/16 Time of Encounter: 07:30 - Vital Signs Vital Signs: Selected Entries 11/12/16 04:00 11/12/16 05:00 11/12/16 07:30 Temperature 97.9 F Pulse Rate 109 Respiratory Rate 16 Blood Pressure 142/97 Oxygen Delivery Method High Flow Nasal Cannula Oxygen Flow Rate (LPM) 15 - Lungs Lungs: Clear Ascult./Percussion - Airway Airway: Non-obstructed - Cardiovascular Regular Rate - Mental Status Mental Status: Alert & Oriented, Answers Appropriately - Pain Pain Scale: 3 Pain Scale used: Numeric (1 - 10) - Nausea Vomiting Nausea Vomiting: Not Present - Hydration Hydration: Tolerates oral liquids Notes: 11/13/16 19:18 Patient is POD #2 CABG, lines still min place, still on high flow O2. No apparent anesthesia complications. Treatment plan per CT surgery
--- NOTE | 2016-11-13 19:47 | Electrocardiograph Report ---
[place] [id number] Test Date: 2016-11-13 Pat Name: Audie Traore Department: 109 Room: [facility] Gender: M Mental Health Case Manager: : 1950 Requested By: Marito Norton Order Number: [id number] Reading MD: Sim Goss DO Measurements Intervals [place] Rate: 148 P: CT: 0 QRS: -17 QRSD: 101 T: 120 QT: 276 QTc: 361 Interpretive Statements ATRIAL FIBRILLATION WITH RAPID VENTRICULAR RESPONSE INFERIOR MYOCARDIAL INFARCTION, PROBABLY OLD Electronically Signed On 11-13-2016 19:45:57 EST by Sim Goss DO
[2016-11-14] MEDS: Albuterol 2.5 MG/3 ML NEBULIZER IH PRN ×4 (00:33→21:03)
[2016-11-14 04:09] LABS: Hematocrit 32.3 % (37.5-50.1); Hemoglobin 11.1 g/dL (12.9-16.9); Mean Corpuscular HGB Conc 34.4 g/dL (31.6-35.5); Mean Corpuscular Hemoglobin 31.5 pg (28.0-33.3); Mean Corpuscular Volume 91.8 fL (83.0-100.0); Mean Platelet Volume 9.7 fL (9.4-12.4); Platelet Count 177 K/mcL (140-400); Red Blood Count 3.52 M/mcL (4.19-5.50); Red Cell Distribution Width 14.5 % (11.5-14.5)
[2016-11-14 04:23] LABS: BUN/Creatinine Ratio 30 (6-26); Blood Urea Nitrogen 27 mg/dL (8-26); Carbon Dioxide 23 mEq/L (19-29); Chloride 102 mEq/L (98-109); Glucose 110 mg/dL (70-99); Osmolality,Calculated 286 (280-300); Potassium 4.2 mEq/L (3.5-4.5); Sodium 135 mEq/L (136-145); eGFR For African Americans > 60 (> 60); eGFR For Non-African Americans > 60 (> 60)
[2016-11-14] MEDS: Nitroglycerin 25 MG/250 ML INFUS..BTL IVC SCH (04:23)
[2016-11-14 04:37] LABS: Calcium 9.2 mg/dL (8.6-10.8)
--- NOTE | 2016-11-14 08:44 | Cardiothoracic Progress Note ---
Date of Encounter: 11/14/16 Time of Encounter: 08:41 - Assessment and plan (1) CAD (coronary artery disease) Current Visit: Yes Status: Acute The patient is recovering well from his CABG 3. He has remained hemodynamically stable and the colon however, continues to have atrial fibrillation. The Cardizem drip continues. His oxygen saturations are in the mid 90s on high flow oxygen per nasal cannula. The patient will transferred to the stepdown unit today. The assessment and plan as outlined above was discussed with the patient and/or family members who expressed understanding and agreement. All questions were answered. Qualifiers: Coronary Disease-Associated Artery/Lesion type: [place] artery [place] vs. transplanted heart: [place] heart Associated angina: with stable angina Qualified Code(s): I25.118 - Atherosclerotic heart disease of [place] coronary artery with other forms of angina pectoris - Subjective Procedure(s) Performed: POD#4 S/P CABG3 Interval history: The patient remained hemodynamically stable overnight. He continues to have atrial fibrillation this morning and is currently on a Cardizem drip with a controlled rate. His oxygen saturation remains in the 90s on high flow. He has no complaints. Vital Signs, Last 4 Hours Temp Pulse Resp BP Pulse Ox 11/14/16 08:34 97.6 F 11/14/16 08:00 110 16 130/84 97 11/14/16 07:00 113 14 126/67 94 L 11/14/16 06:00 111 18 120/63 93 L 11/14/16 05:00 122 20 117/73 94 L [place] Flow Rate Oxygen Flow Rate (LPM) 5 Weight 11/12/16 11/13/16 11/14/16 23:59 23:59 23:59 Weight 99.6 kg - Physical Examination General: Conversant, No Apparent Distress Neck: No JVD, Normal carotid pulses Cardiac: Normal S1 and S2, No Murmur, Other (Irregular rate and rhythm (atrial fibrillation).) Incision: No signs of infection, Dry/intact dressing Pacing Wires: In place Lungs: Normal Breath Sounds, No Wheeze, Rales, Rhonchi Neuro: Alert and responsive, No focal deficits noted Vascular: Normal capillary refill Extremities: No Clubbing, No Cyanosis, No Edema - Labs 11/14/16 04:00 11/14/16 04:00 Lab Results, Last 24 hours 11/14/16 11/14/16 04:00 04:00 WBC 14.6 H Hgb 11.1 L Hct 32.3 L Plt Count 177 Sodium 135 L Potassium 4.2 Chloride 102 Carbon Dioxide 23 BUN 27 H Creatinine 0.91 Glucose 110 H Calcium 9.2 D - Imaging Chest Xray: image reviewed (No pneumothorax. Left basilar atelectasis, improved aeration.) - VTE Documentation of Mechanical Device: Graduated compression elastic hosiery Consult Discharge Plan - Plan [facility]errals: [facility] [[facility] Care Provider[facility] -
[2016-11-14] MEDS ORDERED: (Alendronate Sodium [Fosamax] 70 MG) PO SCH (10:00)
[2016-11-14] MEDS ORDERED: Acetaminophen 325 MG TABLET PO PRN (10:00)
[2016-11-14] MEDS ORDERED: Ondansetron 4 MG/2 ML VIAL IVP PRN (10:00)
[2016-11-14] MEDS ORDERED: D5% in Water 1,000 ML IV PRN (10:00)
[2016-11-14] MEDS ORDERED: Insulin Regular, Human 100 UNIT/ML IV PRN (10:00)
[2016-11-14] MEDS ORDERED: Dextrose Gel 15 GM PO PRN ×2 (10:00)
[2016-11-14] MEDS ORDERED: Diclofenac Sodium 75 MG TABLET PO PRN (10:00)
[2016-11-14] MEDS ORDERED: *HR* OxyCODONE/APAP 5/325 TABLET PO PRN (10:00)
[2016-11-14] MEDS: hydrALAZINE 10 MG TABLET PO SCH ×2 (10:24→20:35)
[2016-11-14] MEDS: Cholecalciferol (D-3) 1,000 UNIT TABLET PO SCH (10:24)
[2016-11-14] MEDS: Gabapentin 400 MG CAPSULE PO PRN ×2 (10:24→20:34)
[2016-11-14] MEDS: Insulin LISPRO 300 UNITS/3 ML VIAL SQ SCH ×3 (11:28→21:00)
[2016-11-14] MEDS: *HR* Heparin 5,000 UNIT/ML VIAL SQ SCH (17:16)
[2016-11-14] MEDS: Melatonin 3 MG TABLET PO SCH (20:33)
[2016-11-14] MEDS: Chlorhexidine Rinse 15 ML MOUTHWASH MM SCH (20:33)
[2016-11-15 04:46] LABS: Hematocrit 32.5 % (37.5-50.1); Hemoglobin 10.8 g/dL (12.9-16.9); Mean Corpuscular HGB Conc 33.2 g/dL (31.6-35.5); Mean Corpuscular Hemoglobin 30.9 pg (28.0-33.3); Mean Corpuscular Volume 93.1 fL (83.0-100.0); Mean Platelet Volume 9.9 fL (9.4-12.4); Platelet Count 215 K/mcL (140-400); Red Blood Count 3.49 M/mcL (4.19-5.50); Red Cell Distribution Width 14.6 % (11.5-14.5)
[2016-11-15 05:35] LABS: BUN/Creatinine Ratio 28 (6-26); Blood Urea Nitrogen 28 mg/dL (8-26); Calcium 9.2 mg/dL (8.6-10.8); Carbon Dioxide 22 mEq/L (19-29); Chloride 103 mEq/L (98-109); Glucose 128 mg/dL (70-99); Osmolality,Calculated 289 (280-300); Potassium 3.8 mEq/L (3.5-4.5); Sodium 136 mEq/L (136-145); eGFR For African Americans > 60 (> 60); eGFR For Non-African Americans > 60 (> 60)
--- NOTE | 2016-11-15 07:33 | Cardiothoracic Progress Note ---
Date of Encounter: 11/15/16 Time of Encounter: 07:31 - Assessment and plan (1) CAD (coronary artery disease) Current Visit: Yes Status: Acute The patient is recovering well from his CABG 3. He has remained hemodynamically stable and continues to have atrial fibrillation. The Cardizem drip stopped and oral Cardizem started. Cardiology will be consult to help manage his atrial fibrillation. His oxygen saturations are in the mid 90s on high flow oxygen per nasal cannula. The patient will continue ambulating today. The assessment and plan as outlined above was discussed with the patient and/or family members who expressed understanding and agreement. All questions were answered. Qualifiers: Coronary Disease-Associated Artery/Lesion type: [place] artery [place] vs. transplanted heart: [place] heart Associated angina: with stable angina Qualified Code(s): I25.118 - Atherosclerotic heart disease of [place] coronary artery with other forms of angina pectoris - Subjective Procedure(s) Performed: POD#5 S/P CABG3 Interval history: The patient remained hemodynamically stable overnight. He continues to have atrial fibrillation this morning and is currently on a Cardizem drip with a controlled rate. His oxygen saturation remains in the 90s on high flow. He has no complaints. Vital Signs, Last 4 Hours Temp Pulse Resp BP Pulse Ox 11/15/16 07:01 98.1 F 100 18 103/63 93 L 11/15/16 05:23 100 20 94 L 11/15/16 04:02 98.0 F 90 20 142/74 94 L [place] Flow Rate Oxygen Flow Rate (LPM) 0 Clinical Data, last 8 Hours Output, Urine Amount 150 Weight 11/13/16 11/14/16 11/15/16 23:59 23:59 23:59 Weight 99.6 kg 95.5 kg - Physical Examination General: Conversant, No Apparent Distress Neck: No JVD, Normal carotid pulses Cardiac: Reg Rate and Rhythm, Normal S1 and S2, No Murmur Incision: No signs of infection, Dry/intact dressing Sternum: Stable Pacing Wires: In place Lungs: Normal Breath Sounds, No Wheeze, Rales, Rhonchi Neuro: Alert and responsive, No focal deficits noted Vascular: Normal capillary refill Extremities: No Clubbing, No Cyanosis, No Edema - Labs 11/15/16 04:09 11/15/16 04:09 Lab Results, Last 24 hours 11/15/16 11/15/16 04:09 04:09 WBC 12.6 H Hgb 10.8 L Hct 32.5 L Plt Count 215 Sodium 136 Potassium 3.8 Chloride 103 Carbon Dioxide 22 BUN 28 H Creatinine 1.00 Glucose 128 H Calcium 9.2 - VTE Documentation of Mechanical Device: Graduated compression elastic hosiery Consult Discharge Plan - Plan Referrals: Marito Norton MD [Partnered Physician] - 12/07/16 1:20 pm [facility] [Primary Care Provider[facility] - 11/28/16 10:15 am Sim Goss DO [Partnered Physician] - (sent request on 11-14-16@[id number])
[2016-11-15] MEDS: hydrALAZINE 10 MG TABLET PO SCH ×2 (07:39→20:59)
[2016-11-15] MEDS: Aspirin Enteric Coated 81 MG Tablet PO SCH (07:41)
[2016-11-15] MEDS: Cholecalciferol (D-3) 1,000 UNIT TABLET PO SCH (07:42)
[2016-11-15] MEDS: Chlorhexidine Rinse 15 ML MOUTHWASH MM SCH ×2 (07:42→20:59)
[2016-11-15] MEDS: Pantoprazole 40 MG VIAL IVP SCH (07:43)
[2016-11-15] MEDS: Gabapentin 400 MG CAPSULE PO PRN (07:51)
[2016-11-15] MEDS: Diltiazem CD (24hr) 240 MG CAPSULE PO SCH (07:52)
[2016-11-15] MEDS: *HR* Heparin 5,000 UNIT/ML VIAL SQ SCH (07:58)
[2016-11-15] MEDS: Insulin LISPRO 300 UNITS/3 ML VIAL SQ SCH ×4 (08:09→20:58)
--- NOTE | 2016-11-15 09:40 | Cardiology Consult Note ---
Date of Encounter: 11/15/16 Time of Encounter: 09:00 Assessment and Plan (1) Atrial fibrillation Current Visit: Yes Status: Acute Developed atrial fibrillation post-operatively. Initially rate controlled on IV cardizem gtt and converted to oral cadizem. Avg HR was 107 bpm. Increase bb as tolerated. Continue cardizem CD 240 mg daily. He is a CHADS VASc=3 for hypertension, age, and CAD/PVD. Anticoagulation with coumadin or NOAC was recommended. Indication, use, adverse effects of xarelto discussed and pt agrees. He is on plavix and asa for peripheral vascular stent and angioplasty 06/2016. I discussed with Dr. Clayton. Pt required minimum of 90 days of DAPT. He is now ok to stop plavix to avoid triple therapy. Continue asa. I will discussed with Dr. Norton. If ok we will start xarelto tonight. I will send through pharmacy to [facility]. Consider DCCV if unable to rate control or if he has not converted to SR after one month of anticoagulation. TTE 08/2016- EF 60%, no significant valvular disease. Qualifiers: Atrial fibrillation type: unspecified Qualified Code(s): I48.91 - Unspecified atrial fibrillation (2) CAD (coronary artery disease) Current Visit: Yes Status: Acute S/p CABG x3. Continue asa, statin, and BB. Noted to have BLE edema 2+. Will give IV lasix x 1. Qualifiers: Coronary Disease-Associated Artery/Lesion type: [place] artery [place] vs. transplanted heart: [place] heart Associated angina: with stable angina Qualified Code(s): I25.118 - Atherosclerotic heart disease of [place] coronary artery with other forms of angina pectoris (3) Peripheral arterial disease Current Visit: No Status: Chronic S/p PVD stent/ angioplasty in June 2016. Discussed with vascular, Ok to d/ c plavix. Continue asa. Discussion w patient/family: The assessment and plan as outlined above was discussed with the patient and/or family members who expressed understanding and agreement. All questions were answered. Thank you for involving us in the care of your patient. Please call with any questions. History of Present Illness Consult date: 11/15/16 Requesting physician: Marito Norton Consult reason: atrial fibrillation Chief complaint: s/p CABG, elevated heart rates History of present illness: Mr. Traore is a 66 year old male s/p 3V CABG 11/10/[address] Norton. He developed atrial fibrillation with RVR after surgery. He was initially treated with IV cardizem and rate controlled. He is now on oral cardizem and lopressor. Cardiology consulted for persistent afib. He denies previous history of atrial fibrillation. Denies palpitations, chest pain , or SOB. Mild sternal tenderness with cough. Other past medical history includes hypertension, HLD, PVD, and tobacco use. Past Med Surg Social Fam HX - Past Medical History Medical history: arthritis, coronary artery disease, hyperlipidemia, hypertension, myocardial infarction Psychiatric history: no psych history - Past Surgical History Surgical History: appendectomy, knee replacement - Social History Smoking Status: Never smoker Smokeless Tobacco Status: No Alcohol use: occasionally Drug use: none - Family History Sister Name: Yuliya Age: 63 Family Member Ethnicity: Non- Living Status: Still Living Hx Family Cardiac Disorders: Yes (CHF) Hx Family Respiratory Disorders: Yes (asthma) Hx Family Cancer: Yes (Breast) Hx Family GI Disorders: Yes (GERD) Hx Family Genitourinary Disorders: No Hx Family Endocrine Disorder: Yes (DM) Hx Family Neuromuscular Disorders: No Hx Family Neurologic Disorders: Yes (CVA) Hx Family HEENT Disorders: No Hx Family Autoimmune Disorders: Yes (fibromyalgia, neuropathy,) Hx Family Reproductive Disorders: No Hx Family Psychosocial Disorders: No Hx Family Medical Disorders: No Medications and Allergies Lisinopril [Zestril] 40 mg PO DAILY 08/19/15 [History] Metoprolol [Lopressor] 25 mg PO BID 08/19/15 [History] Aspirin [Adult Low Dose Aspirin EC] 81 mg PO DAILY #0 01/17/16 [History] Gabapentin [Neurontin] 800 mg PO TID PRN 01/17/16 [History] Clopidogrel Bisulfate [Plavix] 75 mg PO DAILY #30 tablet 06/23/16 [Rx] Cholecalciferol (D-3) [Vitamin D] 1,000 unit PO DAILY 06/30/16 [History] NIFEdipine [Nifedipine ER] 60 mg PO DAILY 10/10/16 [History] Nitroglycerin 0.4 mg SL Q5-10MIN PRN #30 tab.subl 10/10/16 [Rx] Acetaminophen [Tylenol] 325 mg PO Q6HR PRN 11/10/16 [History] Alendronate Sodium [Fosamax] 70 mg PO QWEEK 11/10/16 [History] Allopurinol [Zyloprim 300 MG] 300 mg PO DAILY 11/10/16 [History] Atorvastatin Calcium [Lipitor] 80 mg PO HS 11/10/16 [History] Diclofenac Sodium [Voltaren] 75 mg PO BID PRN 11/10/16 [History] HydrALAZINE 10 mg PO BID 11/10/16 [History] Isosorbide MONOnitrate (24 HR) [Imdur] 30 mg PO BID 11/10/16 [History] Melatonin [Melatin] 3 mg PO HS 11/10/16 [History] Pantoprazole Sodium [Protonix] 40 mg PO BID 11/10/16 [History] Allergies No Known Allergies Allergy (Verified 11/10/16 08:58) All Systems Review: A 10-system review of systems was performed and is negative for pertinent findings except as documented above in the HPI. Physical Examination Vital Signs, Last 4 Hours Temp Pulse Resp BP Pulse Ox 11/15/16 08:11 18 93 L 11/15/16 07:01 98.1 F 100 18 103/63 93 L General: Conversant, No Apparent Distress HEENT: Atraumatic, Normocephaly, Mucus Membranes Moist Neck: No JVD, Normal carotid pulses Cardiac: Other (Irregularly irregular) Lungs: Normal Breath Sounds, No Wheeze, Rales, Rhonchi, Other (Lung sounds diminished. ) Neuro: Alert and responsive, No focal deficits noted Abdomen: Soft, Non-Tender Skin: No rashes noted on visualized skin Musculoskeletal: Other (Midsternal chest dressing intact. Mild tenderness to palpation) Extremities: No Clubbing, No Cyanosis, Normal Pulses, Other (2+ BLE. edema) Results 11/15/16 04:09 11/15/16 04:09 Lab Results 11/15/16 11/15/16 04:09 04:09 WBC 12.6 H Hgb 10.8 L Hct 32.5 L Plt Count 215 Sodium 136 Potassium 3.8 Chloride 103 Carbon Dioxide 22 BUN 28 H Creatinine 1.00 Glucose 128 H Calcium 9.2 - Imaging and Cardiology Echo: report reviewed (08/30- EF 60%, normal bilateral atrial size, no significant valvular disease.) - EKG Interpretation EKG results cardiology: other (24 hour telemetry review shows avg HR 107 bpm. HR currently 70-80's afib.) Consult Discharge Plan - Plan Referrals: Marito Norton MD [Partnered Physician] - 12/07/16 1:20 pm [facility]Primary Care Provider[facility] - (Patient is going [facility] no pcp appointment needed) Sim Goss DO [Partnered Physician] - (sent request on 11-14-16@2138)
[2016-11-15] MEDS ORDERED: Furosemide 20 MG/2 ML VIAL IVP ONE (09:58)
[2016-11-15] MEDS ORDERED: *HR* Rivaroxaban 10 MG TABLET PO SCH (17:00)
[2016-11-15] MEDS: Albuterol 2.5 MG/3 ML NEBULIZER IH PRN (20:25)
[2016-11-15] MEDS: Melatonin 3 MG TABLET PO SCH (20:59)
[2016-11-15] MEDS ORDERED: Metoprolol 100 MG TABLET PO SCH (21:00)
[2016-11-16] MEDS: Albuterol 2.5 MG/3 ML NEBULIZER IH PRN ×2 (00:34→05:19)
--- NOTE | 2016-11-16 07:34 | Discharge Summary ---
Date of Encounter: 11/16/16 Time of Encounter: 07:27 - Discharge Diagnosis (1) CAD (coronary artery disease) Priority: Primary Status: Acute Qualifiers: Coronary Disease-Associated Artery/Lesion type: [place] artery [place] vs. transplanted heart: [place] heart Associated angina: with stable angina Qualified Code(s): I25.118 - Atherosclerotic heart disease of [place] coronary artery with other forms of angina pectoris - Discharge Medications Prescriptions: OxyCODONE/APAP 5/325 [Percocet 5/325 MG] 1 each PO Q4HR PRN #50 tablet PRN Reason: Severe Pain Diltiazem CD (24hr) [Cardizem CD] 240 mg PO DAILY #30 cap.er.24h Metoprolol [Lopressor] 75 mg PO BID #30 tablet Rivaroxaban [Xarelto] 20 mg PO 1700 #30 tablet Home Medications: Aspirin [Adult Low Dose Aspirin EC] 81 mg PO DAILY #0 01/17/16 [History] Gabapentin [Neurontin] 800 mg PO TID PRN 01/17/16 [History] Cholecalciferol (D-3) [Vitamin D] 1,000 unit PO DAILY 06/30/16 [History] Nitroglycerin 0.4 mg SL Q5-10MIN PRN #30 tab.subl 10/10/16 [Rx] Acetaminophen [Tylenol] 325 mg PO Q6HR PRN 11/10/16 [History] Alendronate Sodium [Fosamax] 70 mg PO QWEEK 11/10/16 [History] Allopurinol [Zyloprim 300 MG] 300 mg PO DAILY 11/10/16 [History] Atorvastatin Calcium [Lipitor] 80 mg PO HS 11/10/16 [History] Diclofenac Sodium [Voltaren] 75 mg PO BID PRN 11/10/16 [History] Melatonin [Melatin] 3 mg PO HS 11/10/16 [History] Pantoprazole Sodium [Protonix] 40 mg PO BID 11/10/16 [History] Aspirin Enteric Coated [Aspirin EC] 81 mg PO DAILY tablet. 11/16/16 [Rx] Diltiazem CD (24hr) [Cardizem CD] 240 mg PO DAILY #30 cap.er.24h 11/16/16 [Rx] Metoprolol [Lopressor] 75 mg PO BID #30 tablet 11/16/16 [Rx] OxyCODONE/APAP 5/325 [Percocet 5/325 MG] 1 each PO Q4HR PRN #50 tablet 11/16/16 [Rx] Rivaroxaban [Xarelto] 20 mg PO 1700 #30 tablet 11/16/16 [Rx] Allergies/Adverse Reactions: Allergies No Known Allergies Allergy (Verified 11/10/16 08:58) Date of admission: 11/10/16 10:36 [facility] care physician: [facility] Consults: 11/10/16 11:10 Consult to Cardiac Rehabilitation-Phase1 [CONS] Routine Comment: Reason for Consult: Post open heart Call Completed: Yes 11/10/16 19:03 Consult to Adult Neuropsychologist [CONS] Routine Reason for SW Consult: possible follow-up care after discharge 11/13/16 15:00 Consult to Occupational Therapy [CONS] Routine Comment: Evaluate, develop and implement POC,eval for rehab Consult to Physical Therapy [CONS] Routine Comment: Evaluate, develop and implement POC,eval for rehab 11/15/16 07:39 Consult to Cardiology [CONS] Routine Comment: Consulting Provider: Cardiology Celine Reason for Consult: Postoperative atrial fibrillation management. Time Notified: 07:38 Call Completed: Yes Procedure(s) Performed: 1. CABG3 (MARINO to LAD, SVG to ramus intermediate branch, SVG to PDA) performed November 10, 2016. 2. Endoscopic vein harvesting, greater saphenous vein from right lower extremity performed November 10, 2016. Discharging clinician: Marito Norton Anticipated date of discharge: 11/16/16 - Patient Status Disposition: Home, Self-Care Condition: Good Functional capacity at discharge: uses cane/walker Overall status at discharge: patient is progressing back to baseline - Discharge Instructions Follow Up With: Marito Norton MD [Partnered Physician] - 12/07/16 1:20 pm [place],PCP [Primary Care Provider] - (Patient is going to [facility] no pcp appointment needed) Sim Goss DO [Partnered Physician] - (sent request on 11-14-16@0835) - Diet and Activity Activity: sternal precautions, no driving for four weeks, no lifting greater than 10 pounds for eight weeks, ambulate only with your walker Diet: low fat, low cholesterol - Hospital Course Hospital course: Mr. Traore is a 66 year old hypertensive man with hypercholesterolemia and known peripheral arterial disease. The patient recently underwent a right SFA stenting procedure followed by a left SFA stenting procedure. During the most recent procedure, the patient complained of GERD which is been present for 2 months. The patient's vascular surgeon, Dr. Gonsalo Clayton, recommended the patient undergo cardiac workup. The patient underwent a nuclear stress test which revealed an LVEF 64% with perfusion defects in the inferior segments. Subsequent cardiac catheterization revealed severe 3 vessel CAD. In particular, the patient had an 80% distal left main lesion, a 40% proximal LAD lesion, a 40% mid LAD lesion, 80% ostial LCx lesion (small vessel) and a completely occluded proximal RCA which fills distally via [id number] collaterals. The patient was recommended for CABG when he was able to advance to limited weightbearing from his right femur fracture. The patient was admitted to [facility] on Sunday, November. He underwent a CABG3 and was transferred to the ICU postoperatively. He remained hemodynamically stable and was extubated on POD #1. He remained in the ICU until POD #3 for aggressive pulmonary toilet. He developed atrial fibrillation RVR and was begun on a Cardizem drip for medical treatment of his rate. He was transferred to the stepdown unit and was ambulating with assistance of a wheeled walker (due to his previous femur fracture). His atrial fibrillation continued and he was discharged home with medical therapy and anticoagulation on POD#6. - Time Spent with Patient Total time spent providing and/or coordinating discharge services: Physical Examination Vital Signs, Last 4 Hours Temp Pulse Resp BP Pulse Ox 11/16/ 05:15 20 95 11/16/ 03:54 98.3 F 89 16 105/76 95 General: Conversant, No Apparent Distress HEENT: Atraumatic, Normocephaly, Trachea midline Neck: No JVD, Normal carotid pulses Cardiac: Normal S1 and S2, No Murmur, Other (Irregular rate and rhythm (atrial fibrillation).) Lungs: Normal Breath Sounds, No Wheeze, Rales, Rhonchi Neuro: Alert and responsive, No focal deficits noted Vascular: Normal capillary refill Abdomen: Soft, Non-tender Musculoskeletal: No Chest Wall Tenderness, Other (Sternum stable to both deep breathing and coughing.) Extremities: No Clubbing, No Cyanosis, No Edema Open Heart Registry Aspirin Cont/Prescribed at DC: Yes Beta Karel Cont/Prescribed at DC: Yes Statin Cont/Prescribed at DC: Yes IGNACIO/ARB Cont/Prescribed at DC: Not indicated (LVEF greater than 50%.) - VTE Documentation of Mechanical Device: Graduated compression elastic hosiery
--- NOTE | 2016-11-16 07:43 | Physician Discharge Referral ---
Home Health/Hosp Referral Info Transfer to: Home Health Attending Provider: Cirilo Norton M.D. Provider in Charge Post Discharge: PCP - Diagnosis (1) CAD (coronary artery disease) Priority: Primary Status: Acute - Respiratory Orders Smoking Cessation: Smoking cessation has been advised. For more information, call the [place] Tobacco Quit Line at 5-936-ZPJB-NOW. - Diet/Nutrition Diet/Nutrition Orders: Cardiac - Activity Activity Orders: Walker - Services Needed Following services are medically necessary services: Home Health Aide, Physical Therapy - Transfer Medications Prescriptions: OxyCODONE/APAP 5/325 [Percocet 5/325 MG] 1 each PO Q4HR PRN #50 tablet PRN Reason: Severe Pain Diltiazem CD (24hr) [Cardizem CD] 240 mg PO DAILY #30 cap.er.24h Metoprolol [Lopressor] 75 mg PO BID #30 tablet Rivaroxaban [Xarelto] 20 mg PO 1700 #30 tablet Home Medications: Aspirin [Adult Low Dose Aspirin EC] 81 mg PO DAILY #0 01/17/16 [History] Gabapentin [Neurontin] 800 mg PO TID PRN 01/17/16 [History] Cholecalciferol (D-3) [Vitamin D] 1,000 unit PO DAILY 06/30/16 [History] Nitroglycerin 0.4 mg SL Q5-10MIN PRN #30 tab.subl 10/10/16 [Rx] Acetaminophen [Tylenol] 325 mg PO Q6HR PRN 11/10/16 [History] Alendronate Sodium [Fosamax] 70 mg PO QWEEK 11/10/16 [History] Allopurinol [Zyloprim 300 MG] 300 mg PO DAILY 11/10/16 [History] Atorvastatin Calcium [Lipitor] 80 mg PO HS 11/10/16 [History] Diclofenac Sodium [Voltaren] 75 mg PO BID PRN 11/10/16 [History] Melatonin [Melatin] 3 mg PO HS 11/10/16 [History] Pantoprazole Sodium [Protonix] 40 mg PO BID 11/10/16 [History] Aspirin Enteric Coated [Aspirin EC] 81 mg PO DAILY tablet. 11/16/16 [Rx] Diltiazem CD (24hr) [Cardizem CD] 240 mg PO DAILY #30 cap.er.24h 11/16/16 [Rx] Metoprolol [Lopressor] 75 mg PO BID #30 tablet 11/16/16 [Rx] OxyCODONE/APAP 5/325 [Percocet 5/325 MG] 1 each PO Q4HR PRN #50 tablet 11/16/16 [Rx] Rivaroxaban [Xarelto] 20 mg PO 1700 #30 tablet 11/16/16 [Rx] Allergies/Adverse Reactions: Allergies No Known Allergies Allergy (Verified 11/10/16 08:58) Certification: Further, I certify that my clinical findings support that this patient is homebound (i.e. absences from home require considerable and taxing effort and are for medical reasons or gnosticist services or infrequently or short duration when for other reasons) because: Homebound Reason: Patient requires assistance of a person or device to safely leave home, Post-surgery restriction and or conditions limit ability to leave home, Leaving home requires considerable and taxing effort due to condition Attestation: My signature below is to certify that this patient is under my care and that I, or nurse practitioner, or a physician's licensed investment sales assistant working with me, has a face-to -face encounter with this patient.
[2016-11-16] MEDS: Diltiazem CD (24hr) 240 MG CAPSULE PO SCH (08:38)
[2016-11-16] MEDS: Aspirin Enteric Coated 81 MG Tablet PO SCH (08:40)
[2016-11-16] MEDS: hydrALAZINE 10 MG TABLET PO SCH (08:41)
[2016-11-16] MEDS: Cholecalciferol (D-3) 1,000 UNIT TABLET PO SCH (08:42)
[2016-11-16] MEDS: Pantoprazole 40 MG VIAL IVP SCH (08:43)
[2016-11-16] MEDS: Chlorhexidine Rinse 15 ML MOUTHWASH MM SCH (08:43)
[2016-11-16] MEDS: Insulin LISPRO 300 UNITS/3 ML VIAL SQ SCH (08:45)
--- NOTE | 2016-11-16 10:27 | Cardiology Progress Note ---
Date of Encounter: 11/16/16 Time of Encounter: 10:24 Assessment and Plan (1) Atrial fibrillation Current Visit: Yes Status: Acute Developed atrial fibrillation post-operatively. Initially rate controlled on IV cardizem gtt and converted to oral cadizem. Metoprolol increased yesterday. Avg HR 100 bpm over last 12 hours. Increase bb as tolerated. Increased to 100 mg BID this morning. Continue cardizem CD 240 mg daily. He is a CHADS VASc=3 for hypertension, age, and CAD/PVD. Anticoagulation with coumadin or NOAC was recommended. Indication, use, adverse effects of xarelto discussed and pt agrees[facility] He is on plavix and asa for peripheral vascular stent and angioplasty 06/2016. I discussed with Dr. Clayton yesterday. Pt required minimum of 90 days of DAPT. He is now ok to stop plavix to avoid triple therapy. Continue asa. Consider DCCV if unable to rate control or if he has not converted to SR after one month of anticoagulation. TTE 08/2016- EF 60%, no significant valvular disease. Pt was discharged this morning. F/u will be made with [facility] in 2 weeks. Qualifiers: Atrial fibrillation type: unspecified Qualified Code(s): I48.91 - Unspecified atrial fibrillation (2) CAD (coronary artery disease) Current Visit: Yes Status: Acute S/p CABG x3. Continue asa, statin, and BB. BLE edema improved after IV lasix. No new complaints. Qualifiers: Coronary Disease-Associated Artery/Lesion type: [place] artery [place] vs. transplanted heart: [place] heart Associated angina: with stable angina Qualified Code(s): I25.118 - Atherosclerotic heart disease of [place] coronary artery with other forms of angina pectoris (3) Peripheral arterial disease Current Visit: No Status: Chronic S/p PVD stent/ angioplasty in June 2016. Discussed with vascular, Ok to d/ c plavix. Continue asa. Discussion w patient/family: The assessment and plan as outlined above was discussed with the patient and/or family members who expressed understanding and agreement. All questions were answered. Thank you for involving us in the care of your patient. Please call with any questions. Subjective Principal diagnosis: CAD, S/P CABG, atrial fibrillation Interval history: Pt denies chest pain or SOB. Ambulating in hallway Objective General: Conversant, No Apparent Distress HEENT: Atraumatic, Normocephaly, Mucus Membranes Moist Neck: No JVD, Normal carotid pulses Cardiac: Other (irregularly irregular) Lungs: Normal Breath Sounds, No Wheeze, Rales, Rhonchi Neuro: Alert and responsive, No focal deficits noted Abdomen: Soft, Non-Tender Skin: No rashes noted on visualized skin Musculoskeletal: No Chest Wall Tenderness Extremities: No Clubbing, No Cyanosis, Normal Pulses, Other (1+ pitting edema in ankles improved from yesterday. ) Results 11/15/16 04:09 11/15/16 04:09 - EKG Interpretation EKG results cardiology: other (12 hour telemetry review shows avg HR 100 bpm.) - VTE Documentation of Mechanical Device: Graduated compression elastic hosiery Consult Discharge Plan - Plan Additional Instructions: SEE OPEN HEART DC HANDOUT. Referrals: Marito Norton MD [Partnered Physician] - 12/07/16 1:20 pm [facility]Primary Care Provider[facility] - 11/28/16 10:15 am () Hossein King MD [Partnered Physician] - 12/13/16 3:30 pm Prescriptions: OxyCODONE/APAP 5/325 [Percocet 5/325 MG] 1 each PO Q4HR PRN #50 tablet PRN Reason: Severe Pain Diltiazem CD (24hr) [Cardizem CD] 240 mg PO DAILY #30 cap.er.24h Metoprolol [Lopressor] 75 mg PO BID #30 tablet Rivaroxaban [Xarelto] 20 mg PO 1700 #30 tablet
[2016-11-16 11:13] VITALS: BP 103/73
== END 2016-11-16 13:19 | disposition home or self-care (01) | DRG 236 ==
LOC: SAMDAY 06:53 → ICNU 10:36 → 2NNU 11-14 09:56
PROVIDERS: ADMIT Thoracic Surgery (Cardiothoracic Vascular Surgery); ATTEND Thoracic Surgery (Cardiothoracic Vascular Surgery)

== ENCOUNTER 2018-07-09 09:39 | Inpatient (IN) ==
[2018-07-09] MEDS ORDERED: CeFAZolin Syr 2,000MG/20 ML 2,000 MG/20 ML SYRINGE IVPB ONE (09:57)
[2018-07-09] MEDS ORDERED: Albuterol 2.5 MG/3 ML NEBULIZER IH ONE (09:57)
[2018-07-09] MEDS ORDERED: Ringers Solution, Lactated 1,000 ML IVC SCH (10:00)
--- NOTE | 2018-07-09 10:15 | Anesthesia Evaluation PreOp ---
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 HX Other Medical History: Renal (CKD), GERD (CONTROLLED), Other (HYPERURICEMIA) Anesthesia History: No Prior Anesthetic Complications, Past Anesthesia Alcohol Use: none Drug use: none Medications and Allergies Gabapentin [Neurontin] 800 mg PO QID 01/17/16 [History] Nitroglycerin 0.4 mg SL Q5-10MIN PRN #30 tab.subl 10/10/16 [Rx] Allopurinol [Zyloprim 300 MG] 300 mg PO DAILY 11/10/16 [History] Atorvastatin Calcium [Lipitor] 80 mg PO HS 11/10/16 [History] Pantoprazole Sodium [Protonix] 40 mg PO BID 11/10/16 [History] Aspirin Enteric Coated [Aspirin EC] 81 mg PO DAILY tablet.dr 11/16/16 [Rx] Metoprolol [Lopressor] 75 mg PO BID #30 tablet 11/16/16 [Rx] Rivaroxaban [Xarelto] 20 mg PO 1700 #30 tablet 11/16/16 [Rx] Cholecalciferol (Vitamin D3) [Dialyvite Vitamin D] 5,000 unit PO DAILY 03/09/17 [History] Furosemide [Lasix] 40 mg PO DAILY 03/09/17 [History] Lisinopril [Zestril] 40 mg PO DAILY 07/05/18 [History] NIFEdipine [Afeditab Cr] 60 mg PO DAILY 07/05/18 [History] raNITIdine HCl [Zantac] 150 mg PO HS 07/05/18 [History] 3 Allergy/AdvReac Type Severity Reaction Status Date / Time No Known Allergies Allergy Verified 03/09/17 06:48 - Meds/Allergy Pre-op Review Medications Reviewed: Yes Allergies Reviewed: Yes Beta Blockers on Current Med List: Yes If Beta Blockers taken, Date/Time (Last Dose taken): 1025 Anesthesia Results - Labs Laboratory Last Values WBC 7.8 K/mcL (4.3-11.1) 07/04/18 15:49 RBC 3.69 M/mcL (4.19-5.50) L 07/04/18 15:49 Hgb 11.5 g/dL (12.9-16.9) L 07/04/18 15:49 Hct 34.4 % (37.5-50.1) L 07/04/18 15:49 MCV 93.2 fL (83.0-100.0) 07/04/18 15:49 MCH 31.2 pg (28.0-33.3) 07/04/18 15:49 MCHC 33.4 g/dL (31.6-35.5) 07/04/18 15:49 RDW 15.9 % (11.5-14.5) H 07/04/18 15:49 Plt Count 186 K/mcL (140-400) 07/04/18 15:49 MPV 10.4 fL (9.4-12.4) 07/04/18 15:49 Immature Gran % 0.3 % (0-4) 07/04/18 15:49 Seg Neutrophils % 64.9 % 07/04/18 15:49 Lymphocytes % 25.1 % 07/04/18 15:49 Monocytes % 6.0 % 07/04/18 15:49 Eosinophils % 3.1 % 07/04/18 15:49 Basophils % 0.6 % 07/04/18 15:49 Neutrophils # 5.1 K/mcL (1.6-8.9) 07/04/18 15:49 Lymphocytes # 2.0 K/mcL (0.6-4.6) 07/04/18 15:49 Monocytes # 0.5 K/mcL (0.0-1.3) 07/04/18 15:49 Eosinophils # 0.2 K/mcL (0.0-0.6) 07/04/18 15:49 Basophils # 0.1 K/mcL (0.0-0.2) 07/04/18 15:49 PT 12.7 Seconds (9.4-12.1) H 07/04/18 15:49 INR 1.1 07/04/18 15:49 APTT 32.2 Seconds (26.0-36.0) 07/04/18 15:49 Sodium 139 mEq/L (136-145) 07/04/18 15:49 Potassium 3.9 mEq/L (3.5-5.1) 07/04/18 15:49 Chloride 108 mEq/L (98-107) H 07/04/18 15:49 Carbon Dioxide 26 mEq/L (23-29) 07/04/18 15:49 BUN 26 mg/dL (8-23) H 07/04/18 15:49 Creatinine 1.28 mg/dL (0.70-1.30) 07/04/18 15:49 Est GFR ( Amer) > 60 (> 60) 07/04/18 15:49 Est GFR (Non-Af Amer) 56 (> 60) L 07/04/18 15:49 BUN/Creatinine Ratio 20 (6-26) 07/04/18 15:49 Glucose 168 mg/dL (70-105) H 07/04/18 15:49 Calculated Osmolality 297 (280-300) 07/04/18 15:49 Calcium 9.3 mg/dL (8.6-10.3) 07/04/18 15:49 - Imaging EKG: report reviewed (SINUS BRADYCARDIA) Additional studies: AORTOGRAM 07/04/2018: The Abdominal aorta has significant, flow limiting disease in the distal infrarenal location immediately distal to the takeoff of the inferior mesenteric artery. The bilateral renal arteries are patent with nonsignificant disease. 70% in-stent restenosis in the proximal aspect of the stent in the Left Common Iliac. An intervention including balloon angioplasty was performed successfully on the Left Common Iliac. The left Superficial Femoral has significant, flow limiting disease. Intervention including balloon angioplasty was performed successfully on the left Superficial Femoral. The right superficial femoral has no significant disease. The Bilateral Tibials have non-significant disease. Recommendations: Optimize medical therapy of patient's disease. 75 mg Plavix PO daily. Patient recommended for PACKAGE SEALER of the distal infrarenal aortic stenosis. TTE 06/24/2018: LVEF 55%. Moderate left ventricular diastolic dysfunction. Normal right ventricular structure and function. Mild-moderate mitral regurgitation. Mild tricuspid regurgitation. Mild pulmonic regurgitation. No pulmonary hypertension. Anesthesia Exam O2 Sat Height 1.75 m Height 1.75 m Height 1.75 m Weight 98.43 kg Weight 98.43 kg Weight 98.43 kg BMI 32 Vital Signs Temp Pulse Resp BP Pulse Ox 97.5 F L 56 18 135/67 97 07/09/18 10:01 07/09/18 10:01 07/09/18 10:01 07/09/18 10:01 07/09/18 10:01 - HEENT Mallampati: II Teeth: Normal Oral Opening: Greater than 3 - Cardiac Rhythm: Regular - Pulmonary Breath Sounds: bilateral Clear Respiratory Effort: Symmetrical Anesthesia Assess/Plan ASA Score: 4 Modified [place] Scale for Level of Consciousness: Cooperative, oriented, and tranquil Anesthetic Plan: General Monitoring Plan: Standard Monitors, A-Line Recovery Plan: PACU Anes Supervising Prov Stmt: Vital Energi LIST NOT UPDATED THIS VISIT PATIENT'S CHART AND CURRENT MEDICATIONS REVIEWED CURRENT MEDICATIONS: NIFEdipine ER 60 MG Tablet Extended Release 24 Hour, Si tablet on an empty stomach Orally Once a day Gabapentin 800 MG Tablet, Si tablet Orally Three times a day Pantoprazole Sodium 40 MG Tablet Delayed Release, Si tablet Orally Once a day Lisinopril 40 MG Tablet, Si tablet Orally Once a day Cholecalciferol 1000 UNIT Capsule, Si capsule Orally Once a day Atorvastatin Calcium 80mg Tablet, Si tablet Orally Once a day Aspirin Adult Low Dose 81 MG Tablet Delayed Release, Si tablet Orally Once a day Allopurinol 300MG Tablet, Si tablet Orally Once a day Metoprolol Tartrate 75 MG Tablet, Si tablet Orally Twice a day Nitroglycerin 0.4 MG Tablet Sublingual, Si tablet under the tongue and allow to dissolve as needed Sublingual every 5 minutes as needed for chest pain S Lasix 40 MG Tablet, Si tablet as needed Orally in the morning Start Date: Xarelto 20 MG Tablet, Si tablet with food Orally Once a day Start Date: STOPPED 7 DAYS AGO Patient informed and consented. Risks, benefits, and alternatives discussed. Patient wishes to proceed.
[2018-07-09] MEDS ORDERED: Dexamethasone 4 MG/ML VIAL ONE (10:25)
[2018-07-09] MEDS ORDERED: *HR* Succinylcholine 200 MG/10 ML VIAL IVP ONE (10:27)
[2018-07-09] MEDS ORDERED: Lidocaine -MPF 2% 2 ML VIAL ONE (10:28)
[2018-07-09] MEDS ORDERED: Ondansetron 4 MG/2 ML VIAL ONE (10:28)
[2018-07-09] MEDS ORDERED: *HR* Propofol 200 MG/20 ML VIAL IVP ONE (10:30)
[2018-07-09] MEDS ORDERED: *HR* Remifentanil 2 MG VIAL IVP ONE (10:30)
[2018-07-09] MEDS ORDERED: *HR* FentaNYL (PF) 100 MCG/2 ML VIAL ONE (10:30)
[2018-07-09] MEDS ORDERED: *HR* Phenylephrine 10 MG/ML VIAL ONE (10:32)
[2018-07-09] MEDS ORDERED: *HR* Heparin 5,000 UNIT/ML VIAL ONE (10:40)
[2018-07-09] MEDS ORDERED: Heparin 1,000 UNITS/500 mL 500 ML ONE (10:48)
[2018-07-09] MEDS ORDERED: Isovue-300 150 ML INFUS..BTL IV ONE (11:24)
[2018-07-09] MEDS ORDERED: Heparin 1,000 UNITS/500 mL 2,000 ML ONE (11:24)
--- NOTE | 2018-07-09 11:39 | History & Physical Report ---
Date of Encounter: 07/09/18 Time of Encounter: 11:25 24 Hour HP Update - Instructions Instructions: If the History and Physical is less than 30 days old and was completed prior to A.M. admission and or procedure and has NOT been updated on calendar day of procedure please complete this update prior to performing procedure. - Update Patient reports changes in Medical Condition: No Changes in examination, assessment, or condition: No Changes in Medication: No Preop tests/diagnostics Reviewed: Yes Surgery Remains Indicated: Yes Consent for Planned Operative Procedure(s) Verified: Yes - Pre-Operative Checklist Preoperative Checklist Indicated: Yes Prophylactic Antibiotic Ordered: Yes Home Medications Include Beta Karel: Yes Beta Karel Taken Yesterday (Day Prior to Surgery): Yes Is VTE Prophylaxis Indicated?: Yes
[2018-07-09] MEDS ORDERED: EPHEDrine 50 MG/ML VIAL ONE (12:40)
[2018-07-09] MEDS ORDERED: *HR* OxyCODONE Immed Rel 5 MG TABLET PO PRN (13:16)
[2018-07-09] MEDS ORDERED: Ondansetron 4 MG/2 ML VIAL IVP ONE (13:16)
[2018-07-09] MEDS ORDERED: *HR* Promethazine 25 MG/ML VIAL IVP PRN (13:16)
[2018-07-09] MEDS ORDERED: *HR* Meperidine 25 MG/ML SYRINGE IVP PRN (13:16)
--- NOTE | 2018-07-09 15:27 | Operative Note ---
Date of procedure: 07/09/18 Pre-op diagnosis: PAD/Aortic stenosis Post-op diagnosis: same Procedure: open femoral exposure-right femoral artery stent angioplasty of distal infrarenal aorta with Palmaz XL stent(29 x 10 mm) via 14 Fr right groin sheath aortogram Complications: 0 Anesthesia: GETA Surgeon: Gonsalo Clayton Was there an field technical assistant present: No Estimated blood loss (cc): 150 Specimen: 0 Condition: stable Disposition: PACU Procedure in Detail: History Mr. Audie Traore is a 67-year-old white male with a history of significant and diffuse vascular disease. He has bilateral lower extremity and pelvic disease as well as coronary artery disease. He had had recent points of bilateral lower extremity issues. An angiogram was performed and a angioplasty was performed of the left common iliac artery stent and left superficial femoral artery including the stented area. A significant stenosis was noted in the infrarenal aorta near the level of the takeoff of the inferior mesenteric artery. The patient now comes to the operating room in an attempt to alleviate this aortic disease with stent angioplasty. Procedure After informed consent was obtained the patient was taken the operating room. General endotracheal anesthesia was established. An arterial line was placed. The abdomen groin and upper thighs were sterilely prepped and draped. A timeout protocol was observed. An oblique incision was then made in the right groin. Dissection was carried down to expose the common femoral artery and femoral bifurcation. The patient was found to have a very short common femoral artery with an early bifurcation. Controls obtained of the femoral artery and its bifurcation vessels. An 18-gauge needle was then used and the artery was punctured in a retrograde fashion. A wire was then inserted followed by 6- Malay sheath and dilator. Heparin was then administered a dose of 5000 units. After the heparin circulated a wire was passed through the area of aortic stenosis. The sheath was then exchanged for a 14-Malay sheath which was passed through the area of stenosis. Then the aortic stent was prepared. The stent was a Palmaz XL stent. This was mounted on a 12 x 40 mm balloon and then passed through the sheath and placed into the area of the distal aortic stenosis. The balloon was inflated so that the stent would be opposed against the area of stenosis. Then this 12 mm balloon was deflated and removed and a Coda balloon was inserted. Under fluoroscopic control the area was cannulated through the wire and then the Palmaz stent was expanded using the Coda balloon so that it would oppose the aortic wall. Patient had a total of three 1 minute inflations with Coda balloon. After this was performed a retrograde aortogram was performed through the sheath. This demonstrated patency of the stent with resolution of the stenosis. The adjacent lumbar arteries were also patent as was the aortic bifurcation and iliac system. There were no findings of extravasation of contrast. With this done the sheath was removed. The entry site in the right common femoral artery was repaired with 6-0 Prolene suture. The wound was then irrigated and hemostasis achieved. Marcaine was infiltrated into the wound edges. The wound was then closed in layers using absorbable suture. A dry sterile dressing was applied. Doppler signals 2 were identified at the ankle at the conclusion of the operation. The patient was then extubated and taken from the operating room to the recovery room in stable condition. There were no intraoperative complications.
--- NOTE | 2018-07-09 16:01 | Anesthesia Evaluation Post Op ---
Date of Encounter: 07/09/18 Time of Encounter: 16:00 - Vital Signs Vital Signs: Vital Signs/O2 Sat/Glucose, Most Current Temp Pulse Resp BP Pulse Ox 07/09/18 15:41 77 16 159/82 97 07/09/18 15:31 98.5 F 72 12 161/77 100 - Lungs Lungs: Clear Ascult./Percussion - Airway Airway: Non-obstructed - Cardiovascular Regular Rate - Mental Status Mental Status: Alert & Oriented, Answers Appropriately - Pain Pain Scale: 0 - Nausea Vomiting Nausea Vomiting: Not Present - Hydration Hydration: Ice chips, Guy catheter - Discharge PostOp Status: Transfer Patient to floor
[2018-07-09] MEDS ORDERED: Naloxone 0.4 MG/ML INJ IVP PRN (16:18)
[2018-07-09] MEDS ORDERED: Acetaminophen 325 MG TABLET PO PRN (16:18)
[2018-07-09] MEDS ORDERED: Furosemide 40 MG TABLET PO PRN (16:18)
[2018-07-09] MEDS ORDERED: Nitroglycerin 0.4 MG TAB.SUBL SL PRN ×2 (16:18→17:18)
[2018-07-09] MEDS ORDERED: *HR* HYDROcodone/Acet 5/325 mg TABLET PO PRN (16:18)
[2018-07-09] MEDS ORDERED: Ondansetron 4 MG/2 ML VIAL IVP PRN (16:18)
[2018-07-09] MEDS: Gabapentin 400 MG CAPSULE PO SCH ×2 (18:27→21:13)
[2018-07-09] MEDS ORDERED: Famotidine 20 MG TABLET PO SCH (21:00)
[2018-07-10 03:57] LABS: Basophils % 0.2 %; Hematocrit 29.1 % (37.5-50.1); Immature Granulocytes % 0.3 % (0-4); Lymphocytes % 8.6 %; Mean Corpuscular Hemoglobin 30.8 pg (28.0-33.3); Mean Corpuscular Volume 90.7 fL (83.0-100.0); Monocytes # 0.4 K/mcL (0.0-1.3); Monocytes % 3.2 %; Neutrophils # 10.4 K/mcL (1.6-8.9); Platelet Count 185 K/mcL (140-400); Red Blood Count 3.21 M/mcL (4.19-5.50); Red Cell Distribution Width 15.6 % (11.5-14.5); Segmented Neutrophils % 87.7 %
[2018-07-10 04:19] LABS: BUN/Creatinine Ratio 20 (6-26); Blood Urea Nitrogen 20 mg/dL (8-23); Carbon Dioxide 25 mEq/L (23-29); Chloride 104 mEq/L (98-107); Glucose 155 mg/dL (70-105); Osmolality,Calculated 290 (280-300); Potassium 4.1 mEq/L (3.5-5.1); Sodium 137 mEq/L (136-145); eGFR For Non-African Americans > 60 (> 60)
[2018-07-10 04:28] LABS: Hemoglobin 9.9 g/dL (12.9-16.9)
[2018-07-10] MEDS: Gabapentin 400 MG CAPSULE PO SCH (08:26)
[2018-07-10] MEDS ORDERED: Cholecalciferol (D-3) 1,000 UNIT TABLET PO SCH (09:00)
[2018-07-10] MEDS ORDERED: Aspirin Enteric Coated 81 MG Tablet PO SCH (09:00)
[2018-07-10] MEDS ORDERED: Lisinopril 20 MG TABLET PO SCH (09:00)
[2018-07-10] MEDS ORDERED: NIFEdipine XL (24 HR) 60 MG TAB.ER.24 PO SCH (09:00)
--- NOTE | 2018-07-10 11:48 | Discharge Summary ---
Orders not resulted at time of discharge: Pending orders 07/08/18 10:42 Red Blood Cells [BBK] Routine Date of Encounter: 07/10/18 Time of Encounter: 11:45 - Discharge Diagnosis (1) CAD (coronary artery disease) Priority: Secondary Status: Chronic Comments: Patient is status post open heart bypass grafting last year. Qualifiers: Coronary Disease-Associated Artery/Lesion type: [place] artery [place] vs. transplanted heart: [place] heart Associated angina: without angina Qualified Code(s): I25.10 - Atherosclerotic heart disease of [place] coronary artery without angina pectoris (2) Atrial fibrillation Priority: Secondary Status: Chronic Comments: Patient has history of atrial fibrillation. He was treated medically and is also on anticoagulation therapy with Xarleto. The Xarleto will be restarted tomorrow morning. Qualifiers: Atrial fibrillation type: chronic Qualified Code(s): I48.2 - Chronic atrial fibrillation (3) Peripheral arterial disease Priority: Primary Status: Chronic Comments: Patient has infrarenal aortic stenosis. This was an isolated and focal area. This was treated by placement of a Palmaz XL stent yesterday. Patient also has history of bilateral lower extremity disease and his previous left common iliac artery stent and bilateral superficial femoral artery stents. - Hospital Course Hospital course: Mr. Traore is a 67 year old male With known peripheral vascular and coronary vascular disease. He is status post previous bilateral lower extremity interventions. He is status post previous open heart bypass grafting. The patient had undergone angiography last week which demonstrated a focal area of high-grade stenosis in the distal infrarenal abdominal aorta. Patient was then admitted for surgery performed yesterday. Because of the size of the sheath necessary to successfully and safely place the stent the patient required an open femoral exposure in the operating room under general anesthesia. The procedure was performed as planned. There were no periprocedural complications. The patient is doing well postoperatively and is felt fit for discharge on postoperative day #1. Instructions in regards to wound care, medications, and activities were reviewed with the patient prior to discharge. Patient is to restart Xarleto for chronic atrial fibrillation tomorrow morning. - Time Spent with Patient Total time spent providing and/or coordinating discharge services: - Discharge Medications Home Medications: Gabapentin [Neurontin] 800 mg PO QID 01/17/16 [History] Nitroglycerin 0.4 mg SL Q5-10MIN PRN #30 tab.subl 10/10/16 [Rx] Pantoprazole Sodium [Protonix] 40 mg PO DAILY 11/10/16 [History] Metoprolol [Lopressor] 75 mg PO BID #30 tablet 11/16/16 [Rx] Furosemide [Lasix] 40 mg PO DAILY PRN 03/09/17 [History] Lisinopril [Zestril] 40 mg PO DAILY 07/05/18 [History] NIFEdipine [Afeditab Cr] 60 mg PO DAILY 07/05/18 [History] Allopurinol [Zyloprim] 300 mg PO DAILY 07/09/18 [History] Aspirin Enteric Coated [Aspirin EC] 81 mg PO DAILY 07/09/18 [History] Atorvastatin Calcium [Lipitor] 80 mg PO DAILY 07/09/18 [History] Cholecalciferol (D-3) [Vitamin D] 1,000 unit PO DAILY 07/09/18 [History] Ranitidine HCl [Acid Photography Editor] 75 mg PO DAILY 07/09/18 [History] Rivaroxaban [Xarelto] 20 mg PO DAILY 07/09/18 [History] Allergies/Adverse Reactions: 3 Allergy/AdvReac Type Severity Reaction Status Date / Time No Known Allergies Allergy Verified 07/09/18 11:04 Date of admission: 07/09/18 16:15 [facility]: [facility] Consults: None Procedure(s) Performed: Abdominal aortic stent via open exposure of right femoral artery Discharging clinician: Gonsalo Clayton Anticipated date of discharge: 07/10/18 Exam General: Present: Conversant, No Apparent Distress, Well developed, Well nourished HEENT: Present: Atraumatic Neck: Absent: JVD Cardiac: Present: Irregular Rhythm Lungs: Present: Normal Breath Sounds Neuro: Present: Alert and responsive, No focal deficits noted, Cranial nerves grossly intact Abdomen: Present: Soft, Non-tender Vascular: Present: Color/Temperature (Feet are warm and pink.), Surgical incisions (Dry dressing over right groin incision.). Absent: Edema Skin: Present: No rashes noted on visualized skin Musculoskeletal: Present: No Chest Wall Tenderness - Patient Status Disposition: Home, Self-Care Condition: Good Functional capacity at discharge: independent ambulation Overall status at discharge: patient is progressing back to baseline - Discharge Instructions Follow Up With: [facility] Care Provider[facility] - 07/17/18 9:45 am Gonsalo Clayton MD [Partnered Physician] - 08/07/18 9:45 am Additional Instructions: Remove right groin dressing tomorrow No automobile driving. No lifting greater than 10 pounds. No manual labor. Keep right groin surgical site dry for a total of 5 days following surgery. Patient may ambulate both inside and outside. Patient may use stairs as tolerated. Resume usual home medications. Resume Xarelto tomorrow morning. - Diet and Activity Activity: increase activity as tolerated Diet: advance to your usual diet
[2018-07-10 12:02] VITALS: BP 134/67
== END 2018-07-10 13:30 | disposition home or self-care (01) | DRG 254 ==
LOC: SAMDAY 09:39 → 2NNU 16:15
PROVIDERS: ADMIT Surgery Vascular Surgery; ATTEND Surgery Vascular Surgery